=== PATIENT | male | born 1945 | race Caucasian/White ===

== ENCOUNTER 2017-12-24 16:40 | Inpatient (IN) ==
--- OUTSIDE RECORDS SUMMARY | 2017-12-24 16:51 | External Medical Summary | CCD ---
:1945 Author Name EVELIA HALE Address [address], [place] [address] Care Team Providers Name Role Phone MO KOHLER Attending Physician Unavailable Vital Signs Unknown or Not Available. Allergies Allergy Code Allergy Type Reaction Status No Known Allergies 0 No known allergies Active Procedures Unknown or Not Available. History of Immunizations Unknown or Not Available. Problems Unknown or Not Available. Results PT/INR - Collect Date/Time: 05/08/2016 08:10 Test Name Code Test Result Test Units Test Ref Range PT 18.3 Secs L=9.4 H=11.0 INR 1.81 L=0.00 H=4.00 PT/INR - Collect Date/Time: 05/01/2016 08:10 Test Name Code Test Result Test Units Test Ref Range PT 11.0 Secs L=9.4 H=11.0 INR 1.08 L=0.00 H=4.00 Active Medications Unknown or Not Available. Medications Administered During Visit Unknown or Not Available. Encounters Encounter Diagnosis Diagnosis Code Start Date Unspecified atrial fibrillation I4891 05/01/2016 Social History Smoking Status Code Start Date End Date Never smoker [id number] Patient Decision Aids Unknown or Not Available. Discharge Instructions You were admitted to [facility] on 05/01/2016 07:57 with a principal diagnosis of Unspecified atrial fibrillation You had the following tests done: PT/ INR PT/INR You were discharged from [facility] on 05/19/2016 23:59 Should you have any questions prior to discharge, please contact a member of your healthcare team. If you have left the hospital and have any questions, please contact your primary care physician. Chief Complaint and Reason For Visit Chief Complaint Date of Onset LAB Function Status Unknown or Not Available. Plan of Care Unknown or Not Available. Referral/Transition of Care Unknown or Not Available.
--- OUTSIDE RECORDS SUMMARY | 2017-12-24 16:51 | External Medical Summary | CCD ---
:1945 Author Name EVELIA HALE Address [address] [place], [place] [id number] Care Team Providers Name Role Phone JR MAL JASMINE Attending Physician Unavailable Vital Signs Unknown or Not Available. Allergies Allergy Code Allergy Type Reaction Status No Known Allergies 0 No known allergies Active Procedures Unknown or Not Available. History of Immunizations Unknown or Not Available. Problems Unknown or Not Available. Results PSA - Collect Date/Time: 01/18/2016 13:38 Test Name Code Test Result Test Units Test Ref Range PSA 0.36 ng/mL L=0.00 H=4.00 Active Medications Unknown or Not Available. Medications Administered During Visit Unknown or Not Available. Encounters Encounter Diagnosis Diagnosis Code Start Date Enlarged prostate without N400 01/18/2016 lower urinary tract symptoms Social History Smoking Status Code Start Date End Date Never smoker [id number] Patient Decision Aids Unknown or Not Available. Discharge Instructions You were admitted to [facility] on 01/18/2016 13:33 with a principal diagnosis of Enlarged prostate without lower urinary tract symptoms You had the following tests done: PSA You were discharged from [facility] on 01/18/2016 13:33 Should you have any questions prior to [...]
--- OUTSIDE RECORDS SUMMARY | 2017-12-24 16:51 | External Medical Summary ---
:1945 Author Organization [employer] Care Team Providers Name Role Phone Camryn Boschemiliano Provider Role Unavailable Allergies No Known Allergies Problems Problem Type Condition Code Onset Dates Condition Status Problem Hyperlipidemia 272.4 Active Problem Atrial fibrillation 427.31 Active Problem Hypertension 401.9 Active Problem Obstructive sleep apnea (adult) 327.23 Active (pediatric) Problem CHF, Diastolic Heart Failure, 428.32 Active Chronic Problem Hypertension, Unspecified 401.9 Active Medications Medication Code System Code Instructions Start Date End Date Status Dosage Furosemide [facility] [address] 40 MG Orally Once TAKE ONE 9-25 a day TABLET BY MOUTH DAILY Results No Known Results Summary Purpose eClinicalWorks Submission
--- OUTSIDE RECORDS SUMMARY | 2017-12-24 16:51 | External Medical Summary | CCD ---
:1945 Author Name EVELIA HALE Address [address], [place] [id number] Care Team Providers Name Role Phone MO KOHLER Attending Physician Unavailable Vital Signs Unknown or Not Available. Allergies Allergy Code Allergy Type Reaction Status No Known Allergies 0 No known allergies Active Procedures Unknown or Not Available. History of Immunizations Unknown or Not Available. Problems Unknown or Not Available. Results COMP METABOLIC - Collect Date/Time: 10/06/2016 08:00 Test Name Code Test Result Test Units Test Ref Range GLUCOSE 153 mg/dL L=70 H=110 BUN 18 mg/dL L=7 H=18 CREATININE 0.79 mg/dL L=0.60 H=1.30 AGE 71 YEARS GFR 96.7 L=60.0 H=120 SODIUM 141 mmol/L L=136 H=145 POTASSIUM 4.1 mmol/L L=3.5 H=5.1 CHLORIDE 103 mmol/L L=98 H=107 CO2 27 mmol/L L=21 H=32 CALCIUM 9.3 mg/dL L=8.5 H=10.1 AST 13 U/L L=15 H=37 ALT 25 U/L L=12 H=78 ALKALINE PHOS 63 U/L L=46 H=116 TOTAL PROTEIN 7.8 g/dL L=6.4 H=8.2 ALBUMIN 3.9 g/dL L=3.4 H=5.0 TOTAL BILI 0.80 mg/dL L=0.00 H=1.00 HGB A1C - Collect Date/Time: 10/06/2016 08:00 Test Name Code Test Result Test Units Test Ref Range HGB A1C 6.0 % L=4.5 H=6.2 eAG 126 mg/dL LIPID PANEL - Collect Date/Time: 10/06/2016 08:00 Test Name Code Test Result Test Units Test Ref Range CHOLESTEROL 119 mg/dL L=0 H=200 TRIGLYCERIDES 146 mg/dL L=30 H=150 HDL 35 mg/dL L=40 H=60 LDL, CALC 55 mg/dL L=0 H=100 VLDL 29 mg/dL L=0 H=40 CHOL/HDL RISK 3.4 RATIO L=0.0 H=5.0 PT FASTING: YES N/A MICROALBUMIN/CREATININE RATIO - Collect Date/Time: 10/06/2016 08:05 Test Name Code Test Result Test Units Test Ref Range MICROALBUMIN 4.4 mg/dL L=0.1 H=2.0 CREAT, URINE 155.1 mg/dL MICROALB/CREAT 28.4 ug/mg L=0.0 H=29.9 Active Medications Unknown or Not Available. Medications Administered During Visit Unknown or Not Available. Encounters Unknown or Not Available. Social History Smoking Status Code Start Date End Date Never smoker [id number] Patient Decision Aids Unknown or Not Available. Discharge Instructions You were admitted to [facility] on 10/06/2016 07:56 You had the following tests done: COMP METABOLIC HGB A1C LIPID PANEL MICROALBUMIN/CREATININE RATIO You were discharged from [facility] on 10/06/2016 07:56 Should you have any questions prior to [...]
--- OUTSIDE RECORDS SUMMARY | 2017-12-24 16:51 | External Medical Summary ---
:1945 Author Organization [employer] Care Team Providers Name Role Phone Camryn Boschemiliano Provider Role Unavailable Allergies No Known Allergies Problems Problem Type Condition Code Onset Dates Condition Status Problem Hyperlipidemia 272.4 Active Problem Atrial fibrillation 427.31 Active Problem Hypertension 401.9 Active Problem Obstructive sleep apnea (adult) 327.23 Active (pediatric) Assessment Chronic atrial fibrillation I48.2 Active Problem CHF, Diastolic Heart Failure, 428.32 Active Chronic Problem Hypertension, Unspecified 401.9 Active Medications Medication Code System Code Instructions Start End Date Status Dosage Date Verapamil HCl [facility] [address]-091 180 MG Orally 1 tablet CR 4-01 Once a day Results No Known Results Summary Purpose M[employer]piration Submission
--- OUTSIDE RECORDS SUMMARY | 2017-12-24 16:51 | External Medical Summary | CCD ---
:1945 Author Name EVELIA HALE Address [address], [place] [address] Care Team Providers Name Role Phone MO KOHLER Attending Physician Unavailable Vital Signs Unknown or Not Available. Allergies Allergy Code Allergy Type Reaction Status No Known Allergies 0 No known allergies Active Procedures Unknown or Not Available. History of Immunizations Unknown or Not Available. Problems Unknown or Not Available. Results BASIC METABOLIC - Collect Date/Time: 03/01/2016 07:45 Test Name Code Test Result Test Units Test Ref Range GLUCOSE 238 mg/dL L=70 H=110 BUN 18 mg/dL L=7 H=18 CREATININE 0.96 mg/dL L=0.60 H=1.30 AGE 70 YEARS GFR 77.4 SODIUM 139 mmol/L L=136 H=145 POTASSIUM 3.6 mmol/L L=3.5 H=5.1 CHLORIDE 101 mmol/L L=98 H=107 CO2 30 mmol/L L=21 H=32 CALCIUM 9.3 mg/dL L=8.5 H=10.1 Active Medications Unknown or Not Available. Medications Administered During Visit Unknown or Not Available. Encounters Encounter Diagnosis Diagnosis Code Start Date Disorder of kidney and ureter, N289 03/01/2016 unspecified Social History Smoking Status Code Start Date End Date Never smoker [id number] Patient Decision Aids Unknown or Not Available. Discharge Instructions You were admitted to [facility] on 03/01/2016 07:37 with a principal diagnosis of Disorder of kidney and ureter, unspecified You had the following tests done: BASIC METABOLIC You were discharged from [facility] on 03/01/2016 07:37 Should you have any questions prior to [...]
--- OUTSIDE RECORDS SUMMARY | 2017-12-24 16:51 | External Medical Summary ---
:1945 Author Organization e[employer]Works Care Team Providers Name Role Phone Camryn Boschemiliano Provider Role Unavailable Allergies No Known Allergies Problems Problem Type Condition Code Onset Dates Condition Status Problem Hyperlipidemia 272.4 Active Problem Atrial fibrillation 427.31 Active Problem Hypertension 401.9 Active Problem Obstructive sleep apnea (adult) 327.23 Active (pediatric) Assessment Essential (primary) hypertension I10 Active Problem CHF, Diastolic Heart Failure, 428.32 Active Chronic Problem Hypertension, Unspecified 401.9 Active Medications Medication Code System Code Instructions Start Date End Date Status Dosage Furosemide [facility] [address] 40 MG Orally Once 1 tablet -25 a day Results No Known Results Summary Purpose eClinicalWorks Submission
--- OUTSIDE RECORDS SUMMARY | 2017-12-24 16:51 | External Medical Summary ---
:1945 Author Organization [employer]Man[employer] Care Team Providers Name Role Phone Rio Bosch Provider Role Unavailable Allergies No Known Allergies Problems Problem Type Condition Code Onset Dates Condition Status Problem Hyperlipidemia 272.4 Active Problem Atrial fibrillation 427.31 Active Problem Hypertension 401.9 Active Problem Obstructive sleep apnea (adult) 327.23 Active (pediatric) Problem CHF, Diastolic Heart Failure, 428.32 Active Chronic Problem Hypertension, Unspecified 401.9 Active Medications No Known Medications Results No Known Results Summary Purpose En[employer]NetManage Submission
--- OUTSIDE RECORDS SUMMARY | 2017-12-24 16:51 | External Medical Summary | CCD ---
:1945 Author Name IVETT ANTHONY Address [address], [place] [id number] Care Team Providers Name Role Phone JR MAL JASMINE Attending Physician Unavailable MARI POLLOCK Rounding (Secondary) Physician Unavailable Vital Signs Unknown or Not Available. Allergies Allergy Code Allergy Type Reaction Status No Known Allergies 0 No known allergies Active Procedures Unknown or Not Available. History of Immunizations Unknown or Not Available. Problems Unknown or Not Available. Results PSA - Collect Date/Time: 01/14/2015 11:35 Test Name Code Test Result Test Units Test Ref Range PSA 0.33 ng/mL L=0.00 H=4.00 Active Medications Unknown or Not Available. Medications Administered During Visit Unknown or Not Available. 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 Discharge Instructions You were admitted to [facility] on with a principal diagnosis of HYPERTROPHY BENIGN OF PROSTATE. You were discharged from [facility] on 01/14/2015. Should you have any questions prior to discharge, please contact a member of your healthcare team. If you have left the hospital and have any questions, please contact your primary care physician. Chief Complaint and Reason For Visit Unknown or Not Available. Function Status Unknown or Not Available. Plan of Care Unknown or Not Available. Referral/Transition of Care Unknown or Not Available.
--- OUTSIDE RECORDS SUMMARY | 2017-12-24 16:51 | External Medical Summary ---
:1945 Author Organization eClinicalWorks Care Team Providers Name Role Phone Camryn Boschemiliano Provider Role Unavailable Allergies, Adverse Reactions, Alerts Substance Reaction Event Type N.K.D.A. Info Not Available Non Drug Allergy Problems Problem Type Condition Code Onset Dates Condition Status Assessment Hyperlipidemia 272.4 Active Assessment CHF, Diastolic Heart Failure, 428.32 Active Chronic Assessment Hypertension 401.9 Active Problem Hyperlipidemia 272.4 Active Problem Atrial fibrillation 427.31 Active Problem Hypertension 401.9 Active Problem Obstructive sleep apnea (adult) 327.23 Active (pediatric) Assessment Atrial fibrillation 427.31 Active Problem CHF, Diastolic Heart Failure, 428.32 Active Chronic Problem Hypertension, Unspecified 401.9 Active Medications Medication Code Code Instructions Start End Date Status Dosage System Date ASA 325 mg NDC 0 325MG orally 1 tablet Once a day Glimepiride [facility] [address]-00 2 MG Orally 1 tablet 55-01 Twice a day with breakfast or the first main meal of the day Lisinopril-Hydr NDC 27663-08 20-12.5 MG 1 tablet ochlorothiazide 63-01 Orally Twice a day Furosemide NDC 56154-40 40 MG Orally 1 tablet 99-25 Once a day Digoxin NDC 06966-90 0.25 MG Orally 1 tablet 22-01 [place] [address]-14 0.5 MG Orally 1 capsule 12-04 [place] [address]-60 75 MG Orally 1 tablet 03-99 Once a day Simvastatin NDC 18253-92 20 MG Orally 1 tablet 54-10 Once a day Verapamil HCl NDC 39716-21 180 MG Orally 1 tablet CR 44-01 Once a day Metformin HCl [facility] 64656-99 1000 MG Orally 1 tablet 14-01 Twice a day Procedures Procedure Coding System Code Date Office Visit, Est Pt., Level 3 CPT-4 85266 Apr 07, 2015 Vital Signs Date/Time: Apr 07, 2015 BMI 46.98 Index Weight 300 lbs Height 67 in Cardiac Monitoring Heart Rate 61 /min Oximetry 92 % Blood Pressure Diastolic 62 mm Hg Blood Pressure Systolic 110 mm Hg Results No Known Results Summary Purpose eClinicalWorks Submission
--- OUTSIDE RECORDS SUMMARY | 2017-12-24 16:51 | External Medical Summary ---
:1945 Author Organization [facility] Address [address] [place] [address] Care Team Providers Name Role Phone Rio Bosch Unavailable Unavailable PROBLEMS Type Condition ICD9-CM Code [id number] Onset Condition SNOMED Code Code Dates Status Problem Hypertension 401.9 Active 69792664 Problem Hyperlipidemia 272.4 Active 32158243 Problem Hypertension, 401.9 Active 40542461 Unspecified Problem Obstructive sleep 327.23 Active 48204757 apnea (adult) (pediatric) Problem Atrial fibrillation 427.31 Active 07258737 Problem CHF, Diastolic 428.32 Active 351167311 Heart Failure, Chronic ALLERGIES Unknown Allergies SOCIAL HISTORY No smoking Hx information available PLAN OF CARE VITAL SIGNS MEDICATIONS Medication Instructions Dosage Frequency Start Date End Date Duration Status Verapamil HCl Orally Once a day 1 tablet 24h 30 days Active ER 180 MG RESULTS No Results PROCEDURES No Known procedures IMMUNIZATIONS No Known Immunizations
--- OUTSIDE RECORDS SUMMARY | 2017-12-24 16:51 | External Medical Summary | CCD ---
:1945 Author Name EVELIA HALE Address [address], [place] [id number] Care Team Providers Name Role Phone MO KOHLER Attending Physician Unavailable Vital Signs Unknown or Not Available. Allergies Allergy Code Allergy Type Reaction Status No Known Allergies 0 No known allergies Active Procedures Unknown or Not Available. History of Immunizations Unknown or Not Available. Problems Unknown or Not Available. Results PT/INR - Collect Date/Time: 06/05/2016 10:20 Test Name Code Test Result Test Units Test Ref Range PT 27.8 Secs L=9.4 H=11.0 INR 2.79 L=0.00 H=4.00 PT/INR - Collect Date/Time: 05/22/2016 08:45 Test Name Code Test Result Test Units Test Ref Range PT 26.0 Secs L=9.4 H=11.0 INR 2.60 L=0.00 H=4.00 Active Medications Unknown or Not Available. Medications Administered During Visit Unknown or Not Available. Encounters Encounter Diagnosis Diagnosis Code Start Date Unspecified atrial fibrillation I4891 05/22/2016 Social History Smoking Status Code Start Date End Date Never smoker [id number] Patient Decision Aids Unknown or Not Available. Discharge Instructions You were admitted to [facility] on 05/22/2016 08:32 with a principal diagnosis of Unspecified atrial fibrillation You had the following tests done: PT/ INR PT/INR You were discharged from [facility] on 06/05/2016 13:02 Should you have any questions prior to discharge, please contact a member of your healthcare team. If you have left the hospital and have any questions, please contact your primary care physician. Chief Complaint and Reason For Visit Chief Complaint Date of Onset LABS Function Status Unknown or Not Available. Plan of Care Unknown or Not Available. Referral/Transition of Care Unknown or Not Available.
--- OUTSIDE RECORDS SUMMARY | 2017-12-24 16:51 | External Medical Summary | Referral Summary ---
:1945 Author Organization [facility] Address [address] [place] [address] [place] [address] Care Team Providers Name Role Phone No PCP, Pt States Primary Care Physician Encounter VC Date(s): 01/21/15 - 01/21/15 [facility] [place] [address] Discharge Diagnosis: BPH with obstruction/lower urinary tract symptoms Discharge Disposition: 01-Home or Self Care Attending Physician: Logan Correia JR, MD Admitting Physician: Logan Correia JR, MD Vital Signs No data available for this section Problem List No data available for this section Allergies, Adverse Reactions, Alerts No data available for this section Medications Avodart 0.5 mg oral capsule See Instructions, TAKE ONE CAPSULE BY MOUTH EVERY DAY, # 90 Each, 2 Refill(s), Pharmacy: [facility], TAKE ONE CAPSULE BY MOUTH EVERY DAY Start Date: 03/18/15 Status: Ordered Results No data available for this section Immunizations No data available for this section Procedures No data available for this section Social History No data available for this section Assessment and Plan Extracted from: Title: paper refill request Author: Obdulio Billings RN Date: 03/18/15 Fax refill request from pharmacy for Avodart 0.5mg. #90 with 2 refills given. Extracted from: Title: Ambulatory Patient Education Author: Logan Correia JR, MD Date: 01/21/15 Follow Up With: Where: When: Pt States No PCP [address] [place] [address] Business (1) Within 3 to 5 days Comments: Follow Up With: Where: When: Logan Correia [address] [place] [address] Drive; [address] [place] [address] Business (1) In 1 year 01/22/2016 Comments: Extracted from: Title: Office Visit Note Author: Logan Correia JR, MD Date: 01/21/15 Assessment/Plan BPH with obstruction/lower urinary tract symptoms Continue Avodart. Recheck in my office in one year or sooner if needed. PSA a week before next visit. 15 minute face to face visit with 2/3 of the visit devoted to counseling.
--- OUTSIDE RECORDS SUMMARY | 2017-12-24 16:51 | External Medical Summary ---
:1945 Author Organization [facility] Address [address] [place] [address] Care Team Providers Name Role Phone Rio Bosch Unavailable Unavailable PROBLEMS Type Condition ICD9-CM QRA97-CM Onset Condition SNOMED Code Code Code Dates Status Assessment Essential I10 10 Nov, Active 37317034 (primary) 2017 hypertension Problem Hypertension 401.9 Active 11074400 Problem Hyperlipidemia 272.4 Active 38193689 Problem Hypertension, 401.9 Active 81817843 Unspecified Problem Obstructive sleep 327.23 Active 11102848 apnea (adult) (pediatric) Problem Atrial 427.31 Active 85590225 fibrillation Problem CHF, Diastolic 428.32 Active 228344588 Heart Failure, Chronic ALLERGIES Unknown Allergies SOCIAL HISTORY No smoking Hx information available PLAN OF CARE VITAL SIGNS MEDICATIONS Medication Instructions Dosage Frequency Start Date End Date Duration Status Furosemide 40 Orally Once a day 1 tablet 24h 30 days Active MG RESULTS No Results PROCEDURES No Known procedures IMMUNIZATIONS No Known Immunizations
--- OUTSIDE RECORDS SUMMARY | 2017-12-24 16:51 | External Medical Summary | Referral Summary ---
:1945 Author Organization [facility] Address [address] [place] [address] [place] [address] Care Team Providers Name Role Phone No PCP, Pt States Primary Care Physician Encounter VC Date(s): 01/20/16 - 01/20/16 [facility] [address] [place] [address] [place] [address] [place] Discharge Diagnosis: Type II diabetes mellitus with coma Discharge Diagnosis: Obesity, morbid Discharge Diagnosis: AF (atrial fibrillation) Discharge Diagnosis: Essential hypertension Discharge Diagnosis: Hypercholesterolemia Discharge Diagnosis: BPH with obstruction/lower urinary tract symptoms Discharge Diagnosis: CAD (coronary artery disease) Discharge Disposition: 01-Home or Self Care Attending Physician: Logan Correia JR, MD Vital Signs No data available for this section Problem List No Known Problems Allergies, Adverse Reactions, Alerts No Known Medication Allergies Medications Avodart 0.5 mg oral capsule See Instructions, TAKE ONE CAPSULE BY MOUTH EVERY DAY, # 90 Each, 0 Refill(s), Pharmacy: [facility], TAKE ONE CAPSULE BY MOUTH EVERY DAY Start Date: 09/27/15 Status: Ordered Results No data available for this section Immunizations No data available for this section Procedures Procedure Date Related Diagnosis Body Site Appendectomy Circumcision Hernia repair Tonsillectomy Social History Social History Type Response Smoking Status Unknown if ever smoked Assessment and Plan Extracted from: Title: Ambulatory Patient Education Author: Logan Correia JR, MD Date: 01/20/16 Follow Up With: Where: When: Pt States No PCP [address] [place] [address] Business (1) Within 3 to 5 days Comments: Follow Up With: Where: When: Logan Correia [address] [place] [address] Drive; [address] [place] [address] Business (1) In 1 year 01/19/2017 Comments: Extracted from: Title: Office Visit Note Author: Logan Correia JR, MD Date: 01/20/16 Assessment/Plan 1.BPH with obstruction/lower urinary tract symptoms Continue Avodart recheck in my office in one year. PSAa week before next visit. Ordered: Office Visit Level 3 Est 58813 2.Type II diabetes mellitus with coma Continue metforminthousand milligrams twice a Ordered: Office Visit Level 3 Est 96450 3.Obesity, morbid Patient is trying to lose weight but could not proceed anyway. He likes food Ordered: Office Visit Level 3 Est 91755 4.AF (atrial fibrillation) Continue verapamilaspirin and Plavix Ordered: Office Visit Level 3 Est 90352 5.CAD (coronary artery disease) Continuedigoxinand furosemide Ordered: Office Visit Level 3 Est 82617 6.Essential hypertension Continue lisinopril with hydrochlorothiazide 20/ 12.5 mg twice a day. 7.Hypercholesterolemia Continue simvastatin 20 mg at bedtime.
--- OUTSIDE RECORDS SUMMARY | 2017-12-24 16:51 | External Medical Summary | CCD ---
:1945 Author Name IVETT ANTHONY Address [address], [place] [address] Care Team Providers Name Role Phone MARI POLLOCK Attending Physician Unavailable Vital Signs Unknown or Not Available. Allergies Allergy Code Allergy Type Reaction Status No Known Allergies 0 No known allergies Active Procedures Unknown or Not Available. History of Immunizations Unknown or Not Available. Problems Unknown or Not Available. Results HGB A1C - Collect Date/Time: 12/08/2014 14:45 Test Name Code Test Result Test Units Test Ref Range HGB A1C 6.7 % L=4.5 H=6.2 eAG 146 mg/dL Active Medications Unknown or Not Available. Medications Administered During Visit Unknown or Not Available. Encounters Unknown or Not Available. Social History Smoking Status Code Start Date End Date Never smoker [id number] Patient Decision Aids Unknown or Not Available. Discharge Instructions You were admitted to [facility] on 12/08/2014. You were discharged from [facility] on 12/08/2014. Should you have any questions prior to [...]
--- OUTSIDE RECORDS SUMMARY | 2017-12-24 16:52 | External Medical Summary ---
:1945 Author Organization [facility] Address [address] [place] [address] Care Team Providers Name Role Phone Rio Bosch Unavailable Unavailable PROBLEMS Type Condition ICD9-CM Code [id number] Onset Condition SNOMED Code Code Dates Status Problem Hypertension 401.9 Active 47297407 Problem Hyperlipidemia 272.4 Active 86885316 Problem Hypertension, 401.9 Active 65813245 Unspecified Problem Obstructive sleep 327.23 Active 29174370 apnea (adult) (pediatric) Problem Atrial fibrillation 427.31 Active 91847906 Problem CHF, Diastolic 428.32 Active 875694554 Heart Failure, Chronic ALLERGIES Unknown Allergies SOCIAL HISTORY No smoking Hx information available PLAN OF CARE VITAL SIGNS MEDICATIONS Unknown Medications RESULTS No Results PROCEDURES No Known procedures IMMUNIZATIONS No Known Immunizations
--- OUTSIDE RECORDS SUMMARY | 2017-12-24 16:52 | External Medical Summary | CCD ---
:1945 Author Name EVELIA HALE Address [address] [place], [place] [address] Care Team Providers Name Role Phone CONNOR DIAZ Attending Physician Unavailable CONNOR DIAZ Er Physician 1 Unavailable Vital Signs Unknown or Not Available. Allergies Allergy Code Allergy Type Reaction Status No Known Allergies 0 No known allergies Active Procedures Unknown or Not Available. History of Immunizations Unknown or Not Available. Problems Unknown or Not Available. Results AEROBIC BACTERIAL CULTURE - Collect Date/Time: 01/17/2016 09:08 Test Name Code Test Result Test Units Test Ref Range SPEC SOURCE R LOWER LEG N/A Aerobic Bacterial 634-6 Final report N/A Culture Active Medications Unknown or Not Available. Medications Administered During Visit Unknown or Not Available. Encounters Unknown or Not Available. Social History Smoking Status Code Start Date End Date Never smoker [id number] Patient Decision Aids Unknown or Not Available. Discharge Instructions You were admitted to [facility] on 01/17/2016 08:49 You had the following tests done: AEROBIC BACTERIAL CULTURE You were discharged from [facility] on 01/17/2016 09:55 Should you have any questions prior to discharge, please contact a member of your healthcare team. If you have left the hospital and have any questions, please contact your primary care physician. Chief Complaint and Reason For Visit Chief Complaint Date of Onset WOUND ON RIGHT HOLT Function Status Unknown or Not Available. Plan of Care Unknown or Not Available. Referral/Transition of Care Unknown or Not Available.
--- OUTSIDE RECORDS SUMMARY | 2017-12-24 16:52 | External Medical Summary | CCD ---
:1945 Author Name EVELIA HALE Address [address], [place] [address] Care Team Providers Name Role Phone MO KOHLER Attending Physician Unavailable Vital Signs Unknown or Not Available. Allergies Allergy Code Allergy Type Reaction Status No Known Allergies 0 No known allergies Active Procedures Unknown or Not Available. History of Immunizations Unknown or Not Available. Problems Unknown or Not Available. Results COMP METABOLIC - Collect Date/Time: 08/27/2015 08:15 Test Name Code Test Result Test Units Test Ref Range GLUCOSE 194 mg/dL L=70 H=110 BUN 16 mg/dL L=7 H=18 CREATININE 0.90 mg/dL L=0.60 H=1.30 AGE 70 YEARS GFR 88.7 SODIUM 137 mmol/L L=136 H=145 POTASSIUM 3.9 mmol/L L=3.5 H=5.1 CHLORIDE 100 mmol/L L=98 H=107 CO2 27 mmol/L L=21 H=32 CALCIUM 9.5 mg/dL L=8.5 H=10.1 AST 22 U/L L=15 H=37 ALT 35 U/L L=12 H=78 ALKALINE PHOS 56 U/L L=46 H=116 TOTAL PROTEIN 7.6 g/dL L=6.4 H=8.2 ALBUMIN 4.0 g/dL L=3.4 H=5.0 TOTAL BILI 0.80 mg/dL L=0.00 H=1.00 LIPID PANEL - Collect Date/Time: 08/27/2015 08:15 Test Name Code Test Result Test Units Test Ref Range CHOLESTEROL 128 mg/dL L=0 H=200 TRIGLYCERIDES 222 mg/dL L=30 H=150 HDL 34 mg/dL L=40 H=60 LDL, CALC 50 mg/dL L=0 H=100 VLDL 44 mg/dL L=0 H=40 CHOL/HDL RISK 3.8 RATIO L=0.0 H=5.0 PT FASTING: YES N/A MICROALBUMIN/CREATININE RATIO - Collect Date/Time: 08/27/2015 08:20 Test Name Code Test Result Test Units Test Ref Range MICROALBUMIN 24.0 mg/dL L=0.1 H=2.0 CREAT, URINE 169.3 mg/dL MICROALB/CREAT 141.8 ug/mg L=0.0 H=29.9 CBC W/ DIFF - Collect Date/Time: 08/27/2015 08:15 Test Name Code Test Result Test Units Test Ref Range WBC 11.3 x10^3 L=4.8 H=10.8 RBC 5.71 x10^6 L=4.70 H=6.10 HEMOGLOBIN 16.2 g/dL L=14.0 H=18.0 HEMATOCRIT 47.9 % L=42.0 H=52.0 MCV 84 fL L=80 H=100 MCH 28.4 pg L=27.0 H=33.0 MCHC 33.8 g/dL L=33.0 H=37.0 RDW 14.8 % L=11.5 H=14.5 PLATELETS 256 x10^3 L=150 H=450 MPV 6.1 fL L=7.8 H=11.0 NEUTROPHILS 72.8 % L=40.0 H=80.0 LYMPHOCYTES 17.5 % L=20.0 H=45.0 MONOCYTES 5.7 % L=0.0 H=10.0 EOSINOPHILS 2.9 % L=0.0 H=5.0 BASOPHILS 1.1 % L=0.0 H=2.0 REFLEX MAN DIFF NO N/A Active Medications Unknown or Not Available. Medications Administered During Visit Unknown or Not Available. Encounters Encounter Diagnosis Diagnosis Code Start Date Essential (primary) hypertension I10 08/27/2015 Social History Smoking Status Code Start Date End Date Never smoker [id number] Patient Decision Aids Unknown or Not Available. Discharge Instructions You were admitted to [facility] on 03/2016 with a principal diagnosis of Essential (primary) hypertension. You were discharged from [facility] on 08/27/2015. Should you have any questions prior to [...]
--- OUTSIDE RECORDS SUMMARY | 2017-12-24 16:52 | External Medical Summary ---
:1945 Author Organization [facility] Care Team Providers Name Role Phone Rio [...] Medications Results No Known Results Summary Purpose [employer] Submission
--- OUTSIDE RECORDS SUMMARY | 2017-12-24 16:52 | External Medical Summary | Continuity of Care Document ---
:1945 Author Organization [facility] Allergies Active Description Code Type Severity Reaction Onset Reported/ Identified Relationship Clinical to Patient Status Yes No Known 39153 Misce Moderate N/A Allergies 999 llane ous Aller gy Yes No Known NKMA N/A N/A 09/27/2015 Medication Allergies Yes No Known NKMA N/A N/A 09/27/2015 Medication Allergies Yes No Known Drug Unknown N/A 11/09/2015 Drug Allergy Aller gy Yes No Known Drug Unknown N/A 02/01/2017 Drug Allergy Aller gy Medications Medication Packaging Start Date Stop Date Route Dosage Sig 03/18/2015 See dutasteride(Avod 6 Instructions, art 0.5 mg oral TAKE ONE capsule) CAPSULE BY MOUTH EVERY DAY, 90 Each, 2 Refill(s) 09/27/2015 See dutasteride(Avod Instructions, art 0.5 mg oral TAKE ONE capsule) CAPSULE BY MOUTH EVERY DAY, 90 Each, 0 Refill(s) 11/09/2015 250 mcg 1 Digox 250 mcg 6 (one) by Oral tablet route daily 11/09/2015 180 mg verapamil ER 180 take 1 (one) by mg 24 hr Oral route capsule,extended daily release Tablet 11/09/2015 20-12.5 mg Zestoretic 20 take 1 (one) mg-12.5 mg Tablet by Oral tablet route two times per day 11/09/2015 75 mg clopidogrel 75 6 take 1 (one) mg tablet Tablet by Oral route daily Tablet 11/09/2015 2 mg glimepiride 2 mg take 1 (one) tablet Tablet by Oral route two times per day Tablet 11/09/2015 1,000 mg metFORMIN 1,000 take 1 (one) mg tablet Tablet by Oral route two times per day Blister 11/09/2015 20 mg simvastatin 20 6 take 1 (one) mg tablet Tablet by Oral route daily 11/09/2015 0.5 mg dutasteride 0.5 7 take 1 (one) mg capsule Capsule by Oral route daily 11/09/2015 40 mg furosemide 40 mg 6 take 1 (one) tablet Tablet by Oral route daily 02/03/2016 0.005 % 1 latanoprost (one) at 0.005 % eye bedtime drops Blister 01/30/2017 5-120 mg Allergy Relief take 1 (one) by D12 5 mg-120 mg Oral route tablet,extended daily as release needed Bottle 01/30/2017 0.005 % 1 latanoprost (one) daily 0.005 % eye drops Tablet 01/30/2017 250 mcg 1 digoxin 250 mcg (one) by Oral tablet route daily Box 01/30/2017 325 mg aspirin 325 mg take 1 (one) tablet Tablet by Oral route daily Blister 01/30/2017 75 mg clopidogrel 75 take 1 (one) mg tablet Tablet by Oral route daily Blister 01/30/2017 2 mg glimepiride 2 mg take 1 (one) tablet Tablet by Oral route daily Tablet 01/30/2017 1,000 mg metFORMIN 1,000 take 1 (one) mg tablet Tablet by Oral route daily Blister 01/30/2017 10 mg simvastatin 10 take 1 (one) mg tablet Tablet by Oral route daily Tablet 01/30/2017 180 mg verapamil ER take 1 (one) by (SR) 180 mg Oral route tablet,extended daily release Blister 01/30/2017 20-12.5 mg lisinopril 20 take 1 (one) mg-hydrochloroth Tablet by Oral iazide 12.5 mg route daily tablet Tablet 01/30/2017 40 mg furosemide 40 mg take 1 (one) tablet Tablet by Oral route daily Capsule 01/30/2017 0.5 mg dutasteride 0.5 take 1 (one) mg capsule Capsule by Oral route daily Bottle 02/06/2017 55 mcg 1 Nasacort 55 mcg (one) by nasal spray Intranasal aerosol route two times per day Box 02/06/2017 325 mg aspirin 325 mg take 1 (one) tablet Tablet by Oral route daily Blister 02/06/2017 5 mg finasteride 5 mg take 1 (one) tablet Tablet by Oral route daily Problems Date Dx Attending Type Code Diagnosis Diagnosed By Coded 12/29/2015 EMELI ESPINAL, E66.8 Other obesity EMELI ESPINAL, KELSI DOLAN I 12/29/2015 EMELI ESPINAL, G47.33 Obstructive sleep apnea EMELI ESPINAL, KELSI Melton (adult) (pediatric) KELSI I 12/29/2015 EMELI ESPINAL, I10 Essential (primary) EMELI ESPINAL, KELSI I hypertension KELSI I 12/29/2015 EMELI ESPINAL, I48.1 Persistent atrial EMELI ESPINAL, KELSI I fibrillation KELSI I 12/29/2015 EMELI ESPINAL, I50.32 Chronic diastolic EMELI ESPINAL, KELSI [place] (congestive) heart KELSI I failure 01/20/2016 [place], Final E11.69 Type 2 diabetes mellitus Logan T with other specified complication 01/20/2016 [place], Final N40.1 Enlarged prostate with Logan T lower urinary tract symptoms 01/20/2016 [place], Final E66.01 Morbid (severe) obesity Logan T due to excess calories 01/20/2016 [place], Final E78.0 Pure hypercholesterolemia Logan T 01/20/2016 [place], Final I10 Essential (primary) Logan T hypertension 01/20/2016 [place], Final 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 01/20/2016 [place], Final I48.91 Unspecified atrial Logan T fibrillation 02/04/2016 EMELI ESPINAL, E66.8 Other obesity EMELI ESPINAL, KELSI I KELSI I 02/04/2016 EMELI ESPINAL, G47.33 Obstructive sleep apnea EMELI ESPINAL, KELSI Mel[place] (adult) (pediatric) KELSI I 02/04/2016 EMELI ESPINAL, I10 Essential (primary) EMELI ESPINAL, KELSI [place] hypertension KELSI I 02/04/2016 EMELI ESPINAL, I48.1 Persistent atrial EMELI ESPINAL, KESLI I fibrillation KELSI I 02/04/2016 EMELI ESPINAL, I50.9 Heart failure, EMELI ESPINAL, KELSI I unspecified KELSI I 02/02/2017 DANIELLE ESPINAL, N40.1 Benign prostatic BEBO SANTOS MD hyperplasia with lower BEBO urinary tract symptoms 02/02/2017 DANIELLE ESPINAL, N52.9 Male erectile BEBO SANTOS MD dysfunction, unspecified BEBO 02/02/2017 DANIELLE ESPINAL, R35.0 Frequency of micturition BEBO SANTOS MD 02/07/2017 EMELI ESPINAL, E66.8 Other obesity KELSI SAINZ MD, I 02/07/2017 EMELI ESPINAL, G47.33 Obstructive sleep apnea KELSI SAINZ MD, I (adult) (pediatric) KELSI Mel[place] 10/12/2017 P E119 Type 2 diabetes mellitus without complications 10/12/2017 S E785 Hyperlipidemia, unspecified 10/12/2017 S I10 Essential (primary) hypertension 10/12/2017 S I4891 Unspecified atrial fibrillation 10/12/2017 S I509 Heart failure, unspecified 11/21/2017 REY, ABID S I482 Chronic atrial fibrillation 11/21/2017 REY, ABID S I5032 Chronic diastolic (congestive) heart failure 11/21/2017 REY, ABID P R5382 Chronic fatigue, unspecified Procedures Code Description [place] [address] Office or KELSI SAINZ MD, I 01/12/2016 other outpatient visit for the evaluation and management of a new patient, which requires [address] Office or 01/20/2016 other outpatient visit for the evaluation and management of an established patient, which requires at least 2 of these 3 vázquez components: An expanded problem focused history; An expanded prob 27912 Office or KELSI SAINZ MD, I 01/21/2016 other outpatient visit for the evaluation and management of [place] [address] Sleep KELSI SAINZ MD, I 02/04/2016 Consult billed as Est Lev 3 [phone] KELSI Carbone MD, I 03/02/2016 Consult billed as Est Lev 3 [phone] OFFICE OR BEBO SANTOS MD 02/02/2017 OTHER OUTPATIENT VISIT FOR THE EVALUATION AND MANAGEMENT OF ANEW PATIENT, WHICH [place]QUIRES T 05222 KELSI Carbone MD, I 02/07/2017 Consult billed as Est Lev [phone] Sleep KELSI SAINZ MD, I 03/05/2017 Consult billed as Est Lev 3 [phone] OFFICE OR BEBO SANTOS MD 03/07/2017 OTHER OUTPATIENT VISIT FOR THE EVALUATION AND MANAGEMENT OF ANEW PATIENT, WHICH REQUIRES T Results Test Result Range PSA, TOTAL - 02/08/17 02:07 PSA, TOTAL 0.55 ng/ml 0-4 TSH - 11/21/17 15:10 TSH 3.23 uIU/mL 0.36 - 3.74 COMP METABOLIC - 12/21/17 18:11 COMP METABOLIC LAB NRG GLUCOSE 178 mg/dL 70 - 110 BUN 19 mg/dL 7 - 18 CREATININE 0.99 mg/dL 0.60 - 1.30 AGE 72 YEARS NRG GFR 74.3 60.0 - 120 SODIUM 142 mmol/L 136 - 145 POTASSIUM 3.6 mmol/L 3.5 - 5.1 CHLORIDE 103 mmol/L 98 - 107 CO2 28 mmol/L 21 - 32 CALCIUM 9.3 mg/dL 8.5 - 10.1 AST 23 U/L 15 - 37 ALT 36 U/L 14 - 63 ALKALINE PHOS 65 U/L 46 - 116 TOTAL PROTEIN 7.3 g/dL 6.4 - 8.2 ALBUMIN 3.8 g/dL 3.4 - 5.0 TOTAL BILI 0.90 mg/dL 0.00 - 1.00 TROPONIN I (QUANT) - 12/21/17 18:11 TROPONIN I <0.02 ng/mL 0.00 - 0.05 PTT - 12/21/17 18:11 PTT 23.2 Secs 22.0 - 30.0 INR PPP - 12/21/17 18:11 PT 9.7 Secs 9.0 - 10.4 INR 1.00 0.00 - 4.00 CBC W/ DIFF - 12/21/17 18:11 CBC W/ DIFF LAB NRG WBC 15.4 x10^3 4.8 - 10.8 RBC 4.54 x10^6 4.70 - 6.10 HEMOGLOBIN 12.9 g/dL 14.0 - 18.0 HEMATOCRIT 38.8 % 42.0 - 52.0 MCV 86 fL 80 - 100 MCH 28.4 pg 27.0 - 33.0 MCHC 33.2 g/dL 33.0 - 37.0 RDW 15.0 % 11.5 - 14.5 PLATELETS 209 x10^3 150 - 450 MPV 9.1 fL 7.8 - 11.0 NEUTROPHILS 77.0 % 40.0 - 80.0 LYMPHOCYTES 9.5 % 20.0 - 45.0 MONOCYTES 3.5 % 0.0 - 10.0 EOSINOPHILS 7.8 % 0.0 - 5.0 BASOPHILS 0.9 % 0.0 - 2.0 IMMATURE GRAN 1.3 % 0.0 - 2.0 NUCLEATED RBC'S 0.0 % 0.0 - 1.0 REFLEX MAN DIFF YES NRG SEG 86 %% 40 - 80 BAND 2 %% 0 - 5 LYMPH 7 %% 20 - 45 MONO 1 %% 0 - 10 EOS 2 %% 0 - 5 BASO 2 %% 0 - 2 ATYP LYMPH 0 %% 0 - 10 META 0 %% 0 - 1 RBC MORPHOLOGY NORMAL NRG CBC With Platelet and Differential - 12/22/17 00:29 Absolute Basophils 0.05 10*3/uL 0.00-0.20 Absolute Eosinophils 0.96 10*3/uL 0.00-0.50 Absolute Lymphocytes 1.26 10*3/uL 0.80-3.30 Absolute Monocytes 0.53 10*3/uL 0.30-1.00 Absolute Neutrophils 10.27 10*3/uL 1.90-7.00 Basophils 0 % 0-2 Eosinophils 7 % 0-4 HCT 37.5 % 42.0-52.0 HGB 12.7 g/dL 14.0-18.0 Immature Granulocytes 0.8 % 0.0-1.0 Lymphocytes 10 % 20-46 MCH 29.0 pg 27.0-32.0 MCHC 33.9 g/dL 32.0-36.0 MCV 85.6 fL 82.0-99.0 Monocytes 4 % 4-11 MPV 8.7 fL 9.4-12.3 Neutrophils 78 % 51-75 Nucleated RBC Automated 0.0 /100 WBC Platelet Count 177 K/uL 150-400 RBC 4.38 10*6/uL 4.60-6.20 RDW 15.3 % 11.5-14.5 WBC 13.2 K/uL 4.8-10.8 Protime (INR) - 12/22/17 00:29 INR 1.1 NA 0.9-1.2 PTT - 12/22/17 00:29 PTT 28.6 seconds 25.0-35.0 Comprehensive Metabolic Panel (CMP) - 12/22/17 00:29 Albumin 3.7 g/dL 3.5-4.8 Alkaline Phosphatase 50 U/L 26-104 ALT (SGPT) 25 U/L 17-63 Anion Gap 10 mEq/L 3-20 AST (SGOT) 20 U/L 15-41 Bilirubin Total 1.2 mg/dL 0.2-1.2 BUN 16 mg/dL 4-20 Calcium 9.0 mg/dL 8.6-10.0 Chloride 101 mEq/L 99-109 CO2 27 mEq/L 22-32 Creatinine 0.68 mg/dL 0.64-1.27 Globulin 2.4 g/dL 1.9-4.3 Glucose 162 mg/dL 70-100 Potassium 3.3 mEq/L 3.6-5.1 Protein 6.1 g/dL 6.1-7.9 Sodium 138 mEq/L 136-144 Magnesium - 12/22/17 00:29 Magnesium 1.6 mg/dL 1.8-2.5 Phosphorus - 12/22/17 00:29 Phosphorus 3.8 mg/dL 2.4-4.7 eGFR - 12/22/17 00:29 eGFR >60 mL/min >60 Hemoglobin A1C - 12/22/17 00:29 Hemoglobin A1C 6.5 % 4.1-5.6 Estimated Average Glucose - 12/22/17 00:29 Estimated Average Glucose 139.9 mg/dL Lipid Panel - 12/22/17 00:29 Cardiac Risk 4.3 0.0-5.7 Cholesterol 117 mg/dL 0-199 HDL Cholesterol 27 mg/dL 40-84 LDL Cholesterol 64 mg/dL 0-130 Triglycerides 128 mg/dL 0-149 VLDL Cholesterol 26 mg/dL 0-28 CBC With Platelet and Differential - 12/22/17 07:01 Absolute Basophils 0.06 10*3/uL 0.00-0.20 Absolute Eosinophils 0.74 10*3/uL 0.00-0.50 Absolute Lymphocytes 1.27 10*3/uL 0.80-3.30 Absolute Monocytes 0.50 10*3/uL 0.30-1.00 Absolute Neutrophils 10.00 10*3/uL 1.90-7.00 Basophils 1 % 0-2 Eosinophils 6 % 0-4 HCT 37.7 % 42.0-52.0 HGB 12.5 g/dL 14.0-18.0 Immature Granulocytes 0.6 % 0.0-1.0 Lymphocytes 10 % 20-46 MCH 28.5 pg 27.0-32.0 MCHC 33.2 g/dL 32.0-36.0 MCV 85.9 fL 82.0-99.0 Monocytes 4 % 4-11 MPV 8.9 fL 9.4-12.3 Neutrophils 79 % 51-75 Nucleated RBC Automated 0.0 /100 WBC Platelet Count 184 K/uL 150-400 RBC 4.39 10*6/uL 4.60-6.20 RDW 15.4 % 11.5-14.5 WBC 12.6 K/uL 4.8-10.8 Phosphorus - 12/22/17 07:01 Phosphorus 3.5 mg/dL 2.4-4.7 Magnesium - 12/22/17 07:01 Magnesium 1.7 mg/dL 1.8-2.5 Comprehensive Metabolic Panel (CMP) - 12/22/17 07:01 Albumin 3.6 g/dL 3.5-4.8 Alkaline Phosphatase 50 U/L 26-104 ALT (SGPT) 22 U/L 17-63 Anion Gap 11 mEq/L 3-20 AST (SGOT) 17 U/L 15-41 Bilirubin Total 1.4 mg/dL 0.2-1.2 BUN 13 mg/dL 4-20 Calcium 8.9 mg/dL 8.6-10.0 Chloride 100 mEq/L 99-109 CO2 27 mEq/L 22-32 Creatinine 0.64 mg/dL 0.64-1.27 Globulin 2.3 g/dL 1.9-4.3 Glucose 167 mg/dL 70-100 Potassium 3.4 mEq/L 3.6-5.1 Protein 5.9 g/dL 6.1-7.9 Sodium 138 mEq/L 136-144 eGFR - 12/22/17 07:01 eGFR >60 mL/min >60 Digoxin - 12/22/17 07:01 Digoxin 0.7 ng/mL 0.8-2.0 Encounters ACCT No. Visit Discharge Status Pt. Type Provider Facility Loc./Unit Complaint Date/Time [id number] 01/20/2016 01/20/2016 DIS Outpatient [place], [facility] New 07:58:00 23:59:00 Logan Lamb follow up [facility] [id number] 02/21/2017 02/21/2017 CLS Outpatient DANIELLE 09:17:07 23:59:59 BEBO ESPINAL [id number] 04/17/2017 04/17/2017 CLS Outpatient EKENGREN 13:35:02 23:59:59 KELSI ESPINAL I [id number] 12/21/2017 ACT Inpatient [place], Via [facility] F5SE TIA vs R 42 22:06:00 [facility] stroke, on [facility] [id number] 09/28/2015 Document 1726 05:17:26 Registrati on [id number] 06/09/2015 Document 1419 13:14:19 Registrati on [id number] 12/21/2017 12/21/2017 DIS Emergency ZAHRA, 001 POSSIBLE 18:06:00 20:34:00 HARPREET M STROKE [id number] 11/21/2017 11/21/2017 CLS Outpatient REY [facility] 15:05:00 23:59:59 ABID [id number] 10/12/2017 Document 08:35:00 Registrati on [id number] 10/13/2016 ACT Unknown [id number] 07:43:00 [id number] 07/19/2016 ACT Unknown [id number] 12:41:00 [id number] 06/26/2016 ACT Unknown [id number] 14:16:00 [id number] 06/26/2016 ACT Unknown [id number] 14:06:00 [id number] 03/28/2016 ACT Unknown [id number] 07:46:00 [id number] 02/01/2016 ACT Unknown [id number] 11:00:00 [id number] 01/27/2016 ACT Unknown [id number] 15:41:00 [id number] 09/21/2015 ACT Unknown [id number] 08:06:00 [id number] 09/10/2015 ACT Unknown [id number] 12:49:00 [id number] 09/17/2014 ACT Unknown [id number] 12:47:00 [id number] 09/15/2014 ACT Unknown [id number] 08:24:00 [id number] 07/03/2014 ACT Unknown [id number] 10:00:00 [id number] 03/09/2014 ACT Unknown [id number] 09:11:00 [id number] 12/22/2013 ACT Unknown [id number] 08:16:00
--- OUTSIDE RECORDS SUMMARY | 2017-12-24 16:52 | External Medical Summary ---
:1945 Author Organization [employer] [facility] Address [address] [place] [address] Care Team Providers Name Role Phone Rio Bosch Unavailable Unavailable PROBLEMS Type Condition ICD9-CM [id number] Onset Condition SNOMED Code Code Code Dates Status Assessment Chronic atrial I48.2 Aug, Active [id number] fibrillation 2017 Problem Hypertension 401.9 Active 17585634 Problem Hyperlipidemia 272.4 Active 85076378 Problem Hypertension, 401.9 Active 96260609 Unspecified Problem Obstructive sleep 327.23 Active 86161915 apnea (adult) (pediatric) Problem Atrial 427.31 Active 30974857 fibrillation Problem CHF, Diastolic 428.32 Active 492375258 Heart Failure, Chronic ALLERGIES Unknown Allergies SOCIAL HISTORY No smoking Hx information available PLAN OF CARE VITAL SIGNS MEDICATIONS Medication Instructions Dosage Frequency Start Date End Date Duration Status Digoxin 0.25 MG Orally Once a day 1 tablet 24h 30 days Active RESULTS No Results PROCEDURES No Known procedures IMMUNIZATIONS No Known Immunizations
--- OUTSIDE RECORDS SUMMARY | 2017-12-24 16:52 | External Medical Summary | CCD ---
:1945 Author Name EVELIA HALE Address [address], [place] [id number] Care Team Providers Name Role Phone PRETTY MERCADO Attending Physician Unavailable PRETTY MERCADO Er Physician 1 Unavailable GUILLERMO Perry Registered Nurse Unavailable Vital Signs Vital Sign Value Unit Date/Time Recent/Initial? Weight Measured 276 lbs 06/11/2016 19:21 Initial VS Height 67 in 06/11/2016 19:21 Initial VS BMI (Body Mass 43.23 kg/m^2 06/11/2016 19:21 Initial VS Index) BSA (Body Surface 2.43 m^2 06/11/2016 19:21 Initial VS Area) Allergies Allergy Code Allergy Type Reaction Status No Known Allergies 0 No known allergies Active Procedures Unknown or Not Available. History of Immunizations Unknown or Not Available. Problems Unknown or Not Available. Results CBC W/ DIFF - Collect Date/Time: 06/11/2016 18:54 Test Name Code Test Result Test Units Test Ref Range WBC 15.8 x10^3 L=4.8 H=10.8 RBC 5.22 x10^6 L=4.70 H=6.10 HEMOGLOBIN 14.2 g/dL L=14.0 H=18.0 HEMATOCRIT 42.6 % L=42.0 H=52.0 MCV 82 fL L=80 H=100 MCH 27.3 pg L=27.0 H=33.0 MCHC 33.4 g/dL L=33.0 H=37.0 RDW 14.4 % L=11.5 H=14.5 PLATELETS 302 x10^3 L=150 H=450 MPV 6.4 fL L=7.8 H=11.0 NEUTROPHILS 84.4 % L=40.0 H=80.0 LYMPHOCYTES 10.0 % L=20.0 H=45.0 MONOCYTES 3.0 % L=0.0 H=10.0 EOSINOPHILS 2.4 % L=0.0 H=5.0 BASOPHILS 0.2 % L=0.0 H=2.0 SEG 72 %% L=40 H=80 BAND 1 %% L=0 H=5 LYMPH 12 %% L=20 H=45 MONO 9 %% L=0 H=10 EOS 6 %% L=0 H=5 BASO 0 %% L=0 H=2 ATYP LYMPH 0 %% L=0 H=10 META 0 %% L=0 H=1 REFLEX MAN DIFF YES N/A RBC MORPHOLOGY NORMAL N/A PT/INR - Collect Date/Time: 06/11/2016 18:54 Test Name Code Test Result Test Units Test Ref Range PT 33.4 Secs L=9.4 H=11.0 INR 3.35 L=0.00 H=4.00 Active Medications No Active Medications Medications Administered During Visit Unknown or Not Available. Encounters Encounter Diagnosis Diagnosis Code Start Date Concussion without loss of [id number] 06/11/2016 consciousness, initial encounter Social History Smoking Status Code Start Date End Date Never smoker [id number] Patient Decision Aids Unknown or Not Available. Discharge Instructions You were admitted to [facility] on 06/11/2016 18:21 with a principal diagnosis of Concussion without loss of consciousness, initial encou You had the following tests done: CBC W/ DIFF PT/INR You were discharged from [facility] on 06/11/2016 19:55 Should you have any questions prior to discharge, please contact a member of your healthcare team. If you have left the hospital and have any questions, please contact your primary care physician. Chief Complaint and Reason For Visit Chief Complaint Date of Onset FELL BACKWARDS AND HIT BACK OF HEAD ON GROUND, HEADACHE Function Status Unknown or Not Available. Plan of Care Unknown or Not Available. Referral/Transition of Care Unknown or Not Available.
--- NOTE | 2017-12-24 17:44 | IRU History & Physical Report ---
HPI IRU Date: Date: 12/24/17 Time: 173 Chief complaint: I'm weak on my right side HPI: Mr. Monte is a very pleasant 72-year-old male. Referring physician Roman Gaytan MD. his primary care provider is Payton Turner M.D. history is obtained predominantly from the patient's but also from transfer records and from the patient. The patient is an active rancher. He was mowing his yard on a riding lawnmower. He wanted to get off of the lawnmower. His was nearby. He fell getting off the lawnmower but did not injure himself. He and his then walked to wear some cattle and he were located. He fell the second time at that point. He was noted to be confused and had slurred speech. The initial episode was around 4 or 4:15 PM on 12/21/2017. He presented to the emergency department at [facility] around 7 PM. He was noted to have right-sided facial droop accompanied by confusion and dysarthria with expressive dysphasia and disorientation. Initial NIH score was 11 which later improved to 4. At that location he was given aspirin. He was subsequently transferred to [facility] on the same date. CT head initially was negative for any evidence of acute finding including no evidence of hemorrhage. He had right-sided weakness including right face droop and right arm and leg weakness. On arrival at [facility] his blood pressure was 170/91. He was admitted to the hospital where several studies were undertaken as will be discussed subsequently. Patient apparently has a history of atrial fibrillation, hypertension and diabetes mellitus. According to him and his he was on warfarin in the past but this was stopped several years ago. At home he was not taking Plavix but has been started on that at present. Recommendations were to start Eliquis in about 2 weeks which would be approximately 01/07/2018. He does not check his blood sugars at home. He is on oral agents only consisting of metformin and glimepiride. His A1c in [place] on 12/22/2017 was 6.5%. His LDL was 64. In [place], MRA of neck vessels with contrast 12/22/2017 showed no evidence of high-grade stenosis in the carotid or vertebral arteries within the neck. Carotid duplex on 12/22/2017 was negative. MRI with MRA of brain without contrast 12/22/2017 demonstrated an acute infarct in the frontotemporal subcortical and periventricular white matter on the left side. There is also a small focus of acute infarct in the posterior inferior left subcortical white matter. This seemed to be in the distribution of the left MCA. No hemorrhagic conversion was seen. MRA imaging shows signal dropout in the region of the left M1 and M2 division but it was felt to be artifactual in nature. Two-dimensional echocardiogram 12/22/2017 demonstrated increased left ventricular wall thickness, normal left ventricular cavity size, systolic function normal with estimated ejection fraction 50-55% without regional wall motion abnormalities. There is mild dilatation of left atrium, mild mitral regurgitation and trivial aortic regurgitation. Notation was made of ordering a bubble study but results of that are currently not seen in the transfer records. CHADsVASC score was at least 5. Recommendation for anticoagulation in 2-3 weeks was made. At present he is on Plavix and aspirin. He does have history of obstructive sleep apnea and uses his nasal CPAP at night. Has been on CPAP since 1990. He lives in [place] with his . They are in their own home. He does not use an assistive device at home. He has 3 steps to get up into his home. Railing is present on the right side and back of the house and bilateral railing is present in front. Prior to this event, the patient was very independent with ADLs and ambulation. He was an active rancher. At the present time the patient does require supervision for eating and grooming. He requires minimum assistance for bathing, upper and lower body dressing, toileting and transfers. He requires moderate assistance for toilet transfers, minimum assistance for walking with a rolling walker 80 feet. His speech is impaired. He does have some dysarthria. He is able to speak sentences. He will tend to repeat what has been recently stated. He is oriented and knows that he is in [facility]. He initially reported the date as December 24 (corrected), "81, no 91, no 2019, no 2018." Eventually he was able to get to the correct year. The following medical conditions are noted and require active monitoring and/or management: 1. 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 Atrial fibrillation. Has not been on anticoagulation recently. He is at risk for further cardiac problems including rapid ventricular response. 3. Diabetes mellitus type 2 not on long-term insulin. His A1c in [place] is good but he does not check his blood sugars at home. He is at risk for hypoglycemia as well as hyperglycemia in view of variable energy requirements here on rehabilitation. 4. Benign essential hypertension. His blood pressure has been elevated in [place] and this will be monitored carefully. The following therapies will be needed: 1. Physical therapy: for transfers and ambulation and stairs. 2. Occupational therapy: for ADL's and transfers. 3. Speech therapy: To assess and treat swallowing, cognition and linguistics 4. Medical management: for the above conditions. 5. 24 hour Rehabilitation Nursing to monitor and address the following: Close monitoring of neurologic status to monitor for evidence of evolution of stroke, close monitoring of blood sugars and blood pressures, reduce fall risk 6. Dietitian: In view of diabetes and swallowing difficulty PFS 1. Diabetes mellitus, on oral agents only, controlled based on A1c in [place] 2. Benign essential hypertension 3. 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 Obstructive sleep apnea 5. Chronic atrial fibrillation 6. Depression with anxiety 7. Deafness left ear 8. Hyperlipidemia 9. Gastroesophageal reflux disease Surgical History: 1. Appendectomy. 2. Circumcision. 3. Herniorrhaphy. 4. Tonsillectomy with adenoidectomy Family History: Patient's parents both reportedly of old age. Brother age 76. - Social History Smoking status: Never smoker Substance use type: does not use Alcohol intake: never Housing: house Household members: spouse Current occupational status: employed Current residence: Apartment/Private Home Social history: Patient lives in [place] with his . He remains active as a rancher. Review of Systems - Constitutional Constitutional: Present: fatigue, weakness. Absent: anorexia, chills, fever(s) , headache(s), lethargy, malaise, night sweats, weight gain, weight loss - EEMTT Eyes: Absent: blurry vision, change in vision, diplopia Mouth/Throat: Absent: changes in swallowing, painful swallowing, change in taste , bleeding gums, change in voice - Cardiovascular Cardiovascular: Absent: chest pain, palpitations, syncope, dyspnea on exertion, orthopnea, edema, cyanosis, heart murmur Rhythm: Present: abnormal rhythm Vascular: Present: pedal edema. Absent: intermittent claudication, unilateral swelling - Respiratory Respiratory: Absent: cough, dyspnea, hemoptysis, dyspnea on exertion, wheezing, pain on inspiration, chest congestion, excessive phlegm production - Gastrointestinal Gastrointestinal: Present: constipation (patient reports poor stool output over the last several days.), dyspepsia. Absent: abdominal pain, change in bowel habits, diarrhea, dysphagia, early satiety, hematochezia, melena, nausea, vomiting - Musculoskeletal Musculoskeletal: Present: abnormal gait, myalgias. Absent: arthralgias, back pain, joint swelling, limited range of motion, muscle weakness - Integumentary/Breasts Integumentary: Absent: alopecia, erythema, lesions, pruritus, rash, jaundice - Neurological Neurological: Present: abnormal gait, abnormal speech, frequent falls, other ( possible impaired cognition). Absent: abnormal movements, confusion, convulsions, dizziness, focal weakness, headache(s), loss of vision, memory loss , numbness, paresthesias, tremor(s) - Psychiatric Psychiatric: Present: anxiety, depression. Absent: abnormal sleep pattern - Endocrine Endocrine: Absent: cold intolerance, flushing, heat intolerance, palpitations - Hematologic/Lymphatic Hematologic/Lymphatic: Absent: easy bleeding, easy bruising, lymphadenopathy - Allergic/Immunologic Allergic/Immunologic: Absent: urticaria Medications Home Medications Medication Instructions Recorded Confirmed Type Aspirin 325 mg PO DAILY #0 11/16/11 History Clopidogrel Bisulfate [Plavix] 75 mg PO DAILY #0 11/16/11 History Digoxin 250 mcg PO DAILY #0 11/16/11 History Dutasteride [Avodart] 0.5 mg PO DAILY #0 11/16/11 History Furosemide [Lasix] 40 mg PO DAILY #0 11/16/11 History Lisinopril/Hydrochlorothiazide 1 tab PO BID #0 11/16/11 History (Zestoretic 20/12.5 Tablet) Metformin Hcl 1,000 mg PO BID #0 11/16/11 History Simvastatin [Zocor] 20 mg PO HS #0 11/16/11 History Verapamil HCl [Verapamil ER Pm] 200 mg PO DAILY #0 11/16/11 History Allergies Allergy/AdvReac Type Severity Reaction Status Date / Time No Known Allergies Allergy Unverified 11/16/11 17:39 Results IRU - Labs Labs: I have reviewed records from [place]. Exam Vital Signs: Temperature 97.7 F 12/24/17 17:05 Pulse Rate 75 12/24/17 17:05 Respiratory Rate 24 12/24/17 17:05 Blood Pressure 143/74 H 12/24/17 17:05 Pulse Oximetry 92 12/24/17 17:05 - Constitutional Present: no acute distress, well nourished, well developed, obese, cooperative - Routine HEENT Exam Head: Present: normocephalic, atraumatic. Absent: cushingoid faces, abrasion, laceration, hematoma Eye: Present: EOMI, PERRL (pupils are small). Absent: conjunctival icterus, scleral injection, periorbital swelling, nystagmus ENT: Present: mucous membranes dry, oropharynx clear, dentition normal - Routine Neck Exam Present: supple, full ROM, trachea midline. Absent: lymphadenopathy, thyromegaly, tenderness, swelling - Routine Chest/Breast/Axilla Exam Chest wall: Absent: tenderness, mass Axillae: Absent: lymphadenopathy, mass - Routine Respiratory Exam Present: CTA bilaterally. Absent: accessory muscle use, decreased breath sounds , prolonged expiratory phase, rales, respiratory distress, rhonchi, stridor, wheezes, crackles, distant breath sounds - Routine Cardiovascular Exam Present: S1, S2, murmur, irregularly irregular. Absent: gallop, S3, S4, click, irregular rhythm - Routine Abdominal Exam Present: soft, normoactive bowel sounds, non distended, non tender. Absent: rebound, guarding, firm, rigid, organomegaly, mass, hernia, wound - Routine Extremities Exam Present: edema, non tender, pulses intact, normal capillary refill. Absent: cyanosis, clubbing Comments: Venous stasis changes noted both lower extremities. - Routine Back/Spine/Pelvis Exam Back/Spine: Present: full ROM. Absent: scoliosis, kyphosis - Routine Skin Exam Present: intact, dry, warm. Absent: cyanosis, erythema, pallor, mottling, petechiae, urticaria, lesions, jaundice - Routine Neurological Exam Present: alert, oriented X3, CN II-XII intact, motor deficit (right facial droop present. Weakness noted on flexion and extension at right shoulder, right elbow and right hand cook frozen dessert. Fine motor movement reduced in right hand. Reduced strength at right hip flexion as well as dorsiflexion and plantar flexion at the ankle.), moving all extremities. Absent: normal speech (dysarthria noted. Questionable cognition.) - Routine Psychiatric Exam Present: normal affect, cooperative. Absent: depressed, anxious Comments: Difficult to assessment of status at present. He is awake and alert. He is somewhat oriented as described above. Uncertain with regard to anxiety/ depression as well as uncertain cognition otherwise. Sepsis Assessment - Evaluation Severe Sepsis: none seen IRU A/P (1) Status post cerebrovascular accident Current visit: Yes Status: Acute Patient has suffered a recent left middle cerebral artery CVA with right-sided weakness. He is at risk for further neurologic events and will need to be monitored carefully. In addition he requires a multidisciplinary approach with PT, OT and speech therapy in view of his multiple functional deficits. (2) Benign essential hypertension Current visit: Yes Status: Chronic His blood pressure has been elevated in [place]. This will be monitored carefully. He is at risk for hypertension as well as hypotension. (3) Diabetes mellitus Qualifiers: Diabetes mellitus type: type 2 Diabetes mellitus chcf insulin use: without chcf use Diabetes mellitus complication status: without complication Qualified Code(s): E11.9 - Type 2 diabetes mellitus without complications Current visit: Yes Status: Chronic With variable energy requirements involved in rehabilitation the patient is at risk for hyperglycemia or hypoglycemia and will be monitored carefully. (4) Atrial fibrillation, chronic Current visit: Yes Status: Chronic Patient remains in atrial fibrillation at present. He is at risk for uncontrolled ventricular response. He has not unit on full dose anticoagulation and this will be started in a couple of weeks on or about 01/04/2018. (5) Obstructive sleep apnea Current visit: Yes Status: Chronic DVT Prophylaxis: SCD's, Lovenox Resuscitation Status: Full Code - Course Hospital Course: Clifton Magallon MD: - Interventions to Obtain Goals Goals Progress/Modifications: This medically complex patient requires a multidisciplinary approach with physical therapy, occupational therapy and speech therapy. He will be monitored carefully by 24 hour rehabilitation nursing with medical supervision.
--- NOTE | 2017-12-24 18:03 | IRU 24Hr Post Admit Eval ---
24 Hr Post Admission Physical - Relevant Changes Relevant Changes: No Reviewed: I have reviewed the patient's information and concur with the finding and results of the pre-admission screen. Certification: I certify the patient for rehabilitation. - Patient Condition (1) Status post cerebrovascular accident Status: Acute Code(s): Z86.73 - Personal history of transient ischemic attack (TIA), and cerebral infarction without residual deficits Classification: Present on IRF Admission, IRF Tx That Should Address Diagnosis, Diagnosis Requiring Medical Follow Up (2) Benign essential hypertension Status: Chronic Code(s): I10 - Essential (primary) hypertension Classification: Present on IRF Admission, IRF Tx That Should Address Diagnosis, Diagnosis Requiring Medical Follow Up (3) Diabetes mellitus Status: Chronic Qualifiers: Diabetes mellitus type: type 2 Diabetes mellitus usp insulin use: without ocean transportation intermediary use Diabetes mellitus complication status: without complication Qualified Code(s): E11.9 - Type 2 diabetes mellitus without complications Code(s): E11.9 - Type 2 diabetes mellitus without complications Classification: Present on IRF Admission, IRF Tx That Should Address Diagnosis, Diagnosis Requiring Medical Follow Up (4) Atrial fibrillation, chronic Status: Chronic Code(s): I48.2 - Chronic atrial fibrillation Classification: Present on IRF Admission, IRF Tx That Should Address Diagnosis, Diagnosis Requiring Medical Follow Up (5) Obstructive sleep apnea Status: Chronic Code(s): G47.33 - Obstructive sleep apnea (adult) (pediatric) Classification: Present on IRF Admission, Diagnosis Requiring Medical Follow Up - Prior Functional Status Lives With: Spouse Residence Type: Apartment/Private Home Assitive Devices: None Prior Functional Status: Indep. at home or school, Indep. w/ IADL - Current Functional Status Current Level of Function: At the present time the patient does display dysarthria and reduced cognition. He tends to repeat statements back. He is somewhat oriented and knows that he is at [facility]. He requires minimum assistance for bathing as well as upper and lower body dressing, toileting and transfers. He requires moderate assistance for toilet transfers, minimum assistance for walking with a rolling walker 80 feet. His speech is impaired as described above. Failed Alternative Therapy: Arrived from Acute Care Patient Requirements: The patient requires oversight by rehabilitation physician to manage their rehabilitation treatment plan and multidisciplinary approach to care that can only be provided in an IRF and requires a multidisciplinary approach to care, provided by professional PTs, OTs, STs, dieticians, RTs, rehabilitation nurses and is not available in lesser levels of care. Limitations Req: Mobility Impairment, ADL Impairment, Cognitive Impairment Speech Therapy Minutes: 60 Physical Therapy Minutes: 60 Occupational Therapy Minutes: 60 Therapy: The patient is to receive therapy at least 5 days a week. - Complications/Comorbidities Impact on Functional Outcomes: The patient's recent CVA with right-sided weakness as well as his reduced cognition will negatively impact his functional outcome. Barriers to Discharge: Weakness, Balance, Endurance, Comprehension - Plan to Avoid Complications Plan to Avoid Complications: The patient cannot receive this care in a lesser intensive setting such as Care Home or Outpatient Therapy due to the patient requiring the following : This medically complex patient requires close 24-hour rehabilitation nursing monitoring of his blood sugars, blood pressures and neurologic status as well as cardiac status in view of his atrial fibrillation. The patient requires a multidisciplinary approach with physical therapy, occupational therapy and speech therapy with medical supervision. This clearly cannot be provided at a less intensive setting.
[2017-12-24] MEDS ORDERED: ACETAMINOPHEN 500 MG TABLET PO PRN (18:15)
[2017-12-24 18:20] VITALS: BMI 42.4
[2017-12-24] MEDS: GLIMEPIRIDE 2 MG TABLET PO SCH (19:02)
[2017-12-24] MEDS: BRIMONIDINE/TIMOLOL 0.2%-0.5% EYE DROPS 5ml OP SCH (20:57)
[2017-12-24] MEDS: LATANOPROST 0.005% EYE DROPS 2.5ml EACH EYE SCH (20:57)
[2017-12-24] MEDS: ATORVASTATIN 40 MG TABLET PO SCH (20:57)
[2017-12-25] MEDS: PANTOPRAZOLE 40 MG TABLET PO SCH (08:22)
[2017-12-25] MEDS: GLIMEPIRIDE 2 MG TABLET PO SCH ×2 (08:23→17:55)
[2017-12-25] MEDS: BRIMONIDINE/TIMOLOL 0.2%-0.5% EYE DROPS 5ml OP SCH ×2 (08:23→20:46)
[2017-12-25] MEDS: METFORMIN 1,000 MG TABLET PO SCH ×2 (08:23→17:55)
[2017-12-25] MEDS: CLOPIDOGREL 75 MG TABLET PO SCH (08:24)
[2017-12-25] MEDS: DIGOXIN 250 MCG TABLET PO SCH (08:24)
[2017-12-25] MEDS: CITALOPRAM 10 MG TABLET PO SCH (08:24)
[2017-12-25] MEDS: FINASTERIDE 5 MG TABLET PO SCH (08:25)
[2017-12-25] MEDS: ENOXAPARIN 40 MG/0.4 ML INJECTION SQ SCH (08:25)
[2017-12-25] MEDS: FEXOFENADINE 180 MG TABLET PO SCH (08:25)
[2017-12-25] MEDS: FUROSEMIDE 40 MG TABLET PO SCH (08:26)
[2017-12-25] MEDS: LISINOPRIL 20 MG TABLET PO SCH (08:26)
--- NOTE | 2017-12-25 11:45 | Consult Note ---
Consult Information - Data of Consult Consult date: 12/25/17 Requesting Physician: Clifton Magallon MD Primary Care Provider: Payton Turner MD - Consult Narrative Reason for consult: S/P CVA, medical management History of present illness: Mo Monte is a pleasant 72-year-old male patient of Dr. Payton Turner. He presented to the emergency department at [facility] in [place], [place] on 12/21/17 for evaluation of acute onset of right sided facial droop, confusion, dysarthria, garbled speech, expressive aphasia and disorientation. His symptoms reportedly started around 1615. His reported that he was outside mowing and when he attempted to get off the mower, he lost his balance and was noted to be drooling and felt cool and clammy to the touch. He arrived at the hospital in [place] around 1800 and had an initial NIH of 11, which later improved to 4. He was given ASA upon arrival. Upon arrival, he was quite altered and disorientated but his mentation improved slightly after a few hours with improvement in his speech. CT head in [place] was negative for any acute findings. He was subsequently transferred to [facility] in [place] for further evaluation and treatment. Upon arrival to [place], he was noted to have prominent right facial droop, right-sided weakness including both his upper and lower extremities and significant expressive aphasia. During his hospitalization in [place], he underwent MRI/MRA of the brain which revealed an acute infarct in the left frontotemporal subcortical and periventricular white matter along with a small focus of acute infarct in the posterior inferior subcortical white matter in the distribution of the left MCA territory. Carotid Doppler were unremarkable as well the MRA of the neck. Echocardiogram revealed left ventricular wall thickening with EF of 50-55% with normal systolic function and mild tricuspid and mitral regurg. He has a history of a- fib and had previously been anticoagulated on warfarin which was reportedly discontinued several years ago. He was started on Plavix in [place] with the recommendation of initiation of Eliquis on 01/04/18 given his CHADsVASC score of at least 5. He was transferred to IRU at [facility] on 12/24/17 for continued rehab for strengthening and improvement in functional abilities. The hospitalist service was consulted for medical management. He has a known history of diabetes mellitus with recent A1c of 6.5, as well as hypertension, hyperlipidemia, a-fib. Past Medical History Medical History Updates: 1. Diabetes mellitus, on oral agents only, controlled. 2. Benign essential hypertension. 3. 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 4. Obstructive sleep apnea with home CPAP. 5. Chronic atrial fibrillation. 6. Depression with anxiety. 7. Deafness left ear. 8. Hyperlipidemia. 9. Gastroesophageal reflux disease. 10. CAD. 11. Morbid obesity with BMI >40. 12. Glaucoma. Surgical History: 1. Appendectomy. 2. Circumcision. 3. Herniorrhaphy. 4. Tonsillectomy with adenoidectomy Family History: Patient's parents are both , reportedly from "old age". Brother age 76. Family History: As Above - Social History Smoking status: Never smoker Substance use type: does not use Alcohol intake frequency: does not drink Housing: house Household members: spouse Current occupational status: previously employed ([employer]) Does patient use chewing tobacco?: No Current residence: Apartment/Private Home Social history: PCP - Dr. Turner Review of Systems All systems PM: 10-point ROS was reviewed, no additional remarkable complaints except - Constitutional Constitutional: Absent: chills, fever(s), headache(s) - EENMT Eyes: Absent: change in vision, photophobia Ears: Absent: ear pain Balance: Absent: vertigo Nose: Absent: nosebleeds Mouth/Throat: Absent: sore throat, changes in swallowing - Cardiovascular Cardiovascular: Absent: chest pain, palpitations, syncope Rhythm: Present: abnormal rhythm Vascular: Absent: pallor of an extermity, unilateral swelling - Respiratory Respiratory: Absent: cough, dyspnea, hemoptysis - Gastrointestinal Gastrointestinal: Absent: abdominal pain, diarrhea, nausea, vomiting - Genitourinary Genitourinary: Absent: dysuria, flank pain, nocturia - Musculoskeletal Musculoskeletal: Present: muscle weakness (right sided). Absent: deformity - Integumentary/Breasts Integumentary: Absent: rash - Neurological Neurological: Present: focal weakness (right sided). Absent: dizziness, vertigo - Psychiatric Psychiatric: Present: anxiety, depression - Endocrine Endocrine: Absent: palpitations - Hematologic/Lymphatic Hematologic/Lymphatic: Present: easy bruising - Allergic/Immunologic Allergic/Immunologic: Absent: seasonal rhinorrhea Medications Home Medications Medication Instructions Recorded Confirmed Type Digoxin 250 mcg PO DAILY #0 11/16/11 12/24/17 History Furosemide [Lasix] 40 mg PO DAILY #0 11/16/11 12/24/17 History Acetaminophen [Acetaminophen Extra 500 mg PO Q6HPRN 12/24/17 12/24/17 History Strength] Atorvastatin Calcium 80 mg PO DAILY 12/24/17 12/24/17 History Brimonidine/Timolol Eye Drops 1 drop OP BID 12/24/17 12/24/17 History [Combigan Eye Drops] Citalopram [Celexa] 1 tab PO DAILY 12/24/17 12/24/17 History Clopidogrel Bisulfate [Clopidogrel] 1 tab PO DAILY 12/24/17 12/24/17 History Fexofenadine [Katty] 180 mg PO DAILY 12/24/17 12/24/17 History Finasteride [Proscar] 5 mg PO DAILY 12/24/17 12/24/17 History Glimepiride [Amaryl] 2 mg PO BID 12/24/17 12/24/17 History Latanoprost [Xalatan] 1 drop EACH EYE HS 12/24/17 12/24/17 History Lisinopril [Prinivil] 20 mg PO DAILY 12/24/17 12/24/17 History Metformin [Glucophage] 1 tab PO BIDWM 12/24/17 12/24/17 History Pantoprazole Sodium [Protonix] 1 tab PO ACB 12/24/17 12/24/17 History Verapamil HCl [Verapamil ER] 180 mg PO DAILY 12/24/17 12/24/17 History Allergies Allergy/AdvReac Type Severity Reaction Status Date / Time No Known Allergies Allergy Unverified 11/16/11 17:39 Exam Vital Signs: Temperature 97.8 F 12/25/17 08:00 Pulse Rate 94 12/25/17 08:24 Respiratory Rate 18 12/25/17 08:00 Blood Pressure 176/94 H 12/25/17 08:00 Pulse Oximetry 93 12/25/17 08:00 Height/Weight/BMI: Height 5 ft 7 in Weight 270 lb 15.17 oz Body Mass Index 42.4 Comments: Patient is resting in bed and reports he is ready for his afternoon nap. - Constitutional Present: no acute distress, well nourished, well developed, morbidly obese, cooperative - Routine HEENT Exam Head: Present: normocephalic, atraumatic Eye: Present: PERRL. Absent: conjunctival icterus ENT: Present: mucous membranes moist, oropharynx clear - Routine Neck Exam Present: supple, full ROM, trachea midline - Routine Chest/Breast/Axilla Exam Chest wall: Absent: pacemaker - Routine Respiratory Exam Present: decreased breath sounds. Absent: respiratory distress, wheezes - Routine Cardiovascular Exam Present: irregularly irregular - Routine Abdominal Exam Present: soft, normoactive bowel sounds, non tender - Routine Extremities Exam Present: edema (trace), non tender, pulses intact - Routine Back/Spine/Pelvis Exam Back/Spine: Present: full ROM. Absent: vertebral tenderness - Routine Skin Exam Present: intact, dry, warm Comments: Afebrile. - Routine Neurological Exam Present: alert, hearing grossly intact, facial asymmetry (right facial droop) - Routine Psychiatric Exam Present: cooperative Results - Labs CBC & Chem 7: 12/25/17 04:24 12/25/17 04:24 Assessment and Plan Assessment and Plan: Assessment: S/P post acute embolic CVA involving left MCA. Right hemiparesis Gait dysfunction - POA ADL dysfunction - POA Anemia, unspecific - POA A-fib. Diabetes mellitus, type 2. Hypertension. Obstructive sleep apnea with home CPAP. Depression with anxiety. Deafness in left ear. Hyperlipidemia. GERD. Hyperlipidemia. CAD. Plan - 12/25/17: Agree with admission to IRU under the care of Dr. Magallon. Encourage to encourage participation with therapies. Hospitalist service consulted for medical management. Labs on admission revealed mild anemia (hgb 12.2). Continue to monitor periodically throughout admission. Monitor blood sugars closely with BGMs. A1c on 12/22/17 was 6.5%. Continue home Glimepiride 2mg BID and metformin 1000mg BID. Sliding scale insulin as needed. Carb controlled diet. Monitor blood pressure closely with goal <160 systolic. Continue home verapamil 180mg daily, lisinopril 20mg daily. lasix 40mg daily and digoxin 250 mcg daily for a-fib. Plavix and ASA given recent CVA. Plan to initiate Eliquis on 01/04/18 given CHADsVASC score of at least 5. Monitor closely for signs of depression. Continue home Celexa. Monitor daily weight closely and for signs of fluid overload. Protonix for GERD and GI protection. Lovenox for DVT prophylaxis with plan to switch to Eliquis on 01/04/18. Upon discharge, patient's care will be returned to PCP, Dr. Turner. Patient requests to be FULL CODE. DVT Prophylaxis: SCD's, Lovenox GI Prophylaxis: Protonix Resuscitation Status: Full Code - Time spent with patient Time with patient PN: 70 minutes - Physician Narrative Physician: Ryne Farnsworth MD Narrative: Date: 12/25/17 Time: 1809 Have independently interviewed and examined pt. Chart reviewed. Case discussed with my PA. Above care plan developed with my supervision; agree with above. Tired this evening-hard work with therapy. Feels he did well; enjoyed the activities done. Feels making improvements in strength. Breathing well. No chest pain. Eating well-no ab pain or nausea. Lungs: decreased, no distress CV: irregularly irregular AB: soft obese NT/ND MSE: awake alert Plan: Agree with admission to IRU to maximize strength and functional status post CVA. Encourage participation with therapy. Continue with medications as outlined from acute stay. Monitor blood sugars - may need to adjust medication. Continue with BP control. Anticipate initiation of Eliquis on 01/04/18. Medically stable for IRU floor activities. Hospital Course Summary Disclaimer: The visit summary below is not to be considered part of the above Progress Note. Hospital Course: Plan - 12/25/17: Agree with admission to IRU under the care of Dr. Magallon. Encourage to encourage participation with therapies. Hospitalist service consulted for medical management. Labs on admission revealed mild anemia (hgb 12.2). Continue to monitor periodically throughout admission. Monitor blood sugars closely with BGMs. A1c on 12/22/17 was 6.5%. Continue home Glimepiride 2mg BID and metformin 1000mg BID. Sliding scale insulin as needed. Carb controlled diet. Monitor blood pressure closely with goal <160 systolic. Continue home verapamil 180mg daily, lisinopril 20mg daily. lasix 40mg daily and digoxin 250 mcg daily for a-fib. Plavix and ASA given recent CVA. Plan to initiate Eliquis on 01/04/18 given CHADsVASC score of at least 5. Monitor closely for signs of depression. Continue home Celexa. Monitor daily weight closely and for signs of fluid overload. Protonix for GERD and GI protection. Lovenox for DVT prophylaxis with plan to switch to Eliquis on 01/04/18. Upon discharge, patient's care will be returned to PCP, Dr. Turner. Patient requests to be FULL CODE.
--- NOTE | 2017-12-25 12:03 | IRU Progress Note ---
- Subjective/Serverity of Illness Date: 12/25/17 Mr. Monte was interviewed and examined in his room on inpatient rehabilitation. He reports that he slept reasonably well and used his CPAP all night. He does report some fatigue. He denies any shortness of breath. He denies chest pain. He tends to minimize his symptoms it seems. His was present today during the interview and examination. I discussed with her as well as the patient the issue of resuscitation. She does have legal papers with her and the patient does have a living will which I reviewed. He otherwise does not have a separate "DO NOT RESUSCITATE" order. I reviewed this with the patient and his . At present he does wish to be resuscitated in the event of a cardiac or pulmonary arrest. Review of his labs indicates his blood sugars remain a bit elevated. Blood pressure is also elevated. He is getting acquainted to the rehabilitation milieu and has been evaluated by PT, OT and speech therapy. Update on medical issues we are actively monitoring and managing as follows: 1. Status post acute embolic CVA involving left middle cerebral artery: Continues to demonstrate some right-sided weakness. His speech is mildly dysarthric. He is being evaluated by speech therapy. 2. Atrial fibrillation. Has not been on anticoagulation recently. He is at risk for further cardiac problems including rapid ventricular response. Recommendations are to wait on Eliquis until January 04. He remains on Plavix which , as far as I can tell, is a new medication for him. We'll discuss with the hospitalist service in this regard. 3. Diabetes mellitus type 2 not on long-term insulin. Current blood sugars are 205 and 140. We will continue to monitor. 4. Benign essential hypertension. His blood pressures remain elevated at around 150-170. Management per hospitalist service. Exam Vital Signs: Temperature 97.8 F 12/25/17 08:00 Pulse Rate 94 12/25/17 08:24 Respiratory Rate 18 12/25/17 08:00 Blood Pressure 176/94 H 12/25/17 08:00 Pulse Oximetry 93 12/25/17 08:00 Height/Weight/BMI: Height 1.7 m Weight 122.9 kg Body Mass Index 42.4 - Constitutional Present: no acute distress, well nourished, well developed, morbidly obese, cooperative Comments: He tells me he just wants to go home. - Routine HEENT Exam Head: Present: normocephalic Eye: Present: EOMI, PERRL ENT: Present: mucous membranes moist, oropharynx clear, dentition normal - Routine Neck Exam Present: supple - Routine Respiratory Exam Present: CTA bilaterally. Absent: wheezes - Routine Cardiovascular Exam Present: S1, S2, murmur, irregularly irregular - Routine Abdominal Exam Present: soft, normoactive bowel sounds, non distended. Absent: tenderness - Routine Extremities Exam Present: normal capillary refill - Routine Skin Exam Present: dry, warm - Routine Neurological Exam Present: alert, oriented X3, CN II-XII intact, motor deficit (he has mild right- sided weakness involving the right upper extremity and right lower extremity. He can lift the right leg off the bed against resistance although it is weaker than the left side. Likewise, the right arm is minimally weaker than the left side although upper extremity strength appears to be overall reasonably well- maintained.) - Routine Psychiatric Exam Present: normal affect, cooperative Comments: It is a bit too early to determine his degree of insight and judgment. He tends to minimize things a bit. In addition his speech may be a limitation on what he is actually thinking. Results IRU - Labs Labs: Patient's hemoglobin is stable at 12 g percent. His vital signs are indicated hypertension. Blood sugars are reviewed as well. IRU A/P (1) Status post cerebrovascular accident Current visit: Yes Status: Acute Patient neurologic status appears to be stable at present. He remains on Plavix. Keven recommended waiting a couple of weeks before we start Eliquis which would be on January 04. I will discuss with the hospitalist service in this regard. (2) Benign essential hypertension Current visit: Yes Status: Chronic Blood pressures are running a bit high. (3) Diabetes mellitus Qualifiers: Diabetes mellitus type: type 2 Diabetes mellitus group home insulin use: without group home use Diabetes mellitus complication status: without complication Qualified Code(s): E11.9 - Type 2 diabetes mellitus without complications Current visit: Yes Status: Chronic We will continue to monitor his blood sugars. Remains on oral agents only. (4) Atrial fibrillation, chronic Current visit: Yes Status: Chronic (5) Obstructive sleep apnea Current visit: Yes Status: Chronic He reports he is using his CPAP all night. DVT Prophylaxis: SCD's, Lovenox Resuscitation Status: Full Code - Course Hospital Course: Clifton Magallon MD: 12/25/17 12:06 Blood pressures are a bit high. Neurologically he seems stable. Weight on Eliquis until January 04. - Interventions to Obtain Goals OT Treatment Plan: ADL (Basic Care), IADL, UE Functional Training Goals Progress/Modifications: This patient is somewhat medically complex in view of his atrial fibrillation and diabetes and hypertension as well as his sleep apnea. He is being assessed by speech therapy as well as PT and OT. Blood sugars are perhaps a bit high and we will monitor this. His blood pressures are running too high and we will discuss this with the hospitalist service. Neurologically he seems to be stable although does have right-sided weakness. Speech is mildly dysarthric. We will work on medical management as well as functional improvement and I would anticipate a good outcome.Please note that the patient's individual plan of care was developed and documented today, requiring review of therapy notes, medical conditions and anticipated functional recovery. This required additional medical decision making with regard to interaction of the patient's medical issues with the anticipated functional recovery. Please see separate document
--- NOTE | 2017-12-25 12:10 | IRU Plan of Care ---
[facility] Overall Plan of Care - Date Date: 12/25/17 - Patient Impairments (1) Status post cerebrovascular accident Code(s): Z86.73 - Personal history of transient ischemic attack (TIA), and cerebral infarction without residual deficits Status: Acute Classification: Present on IRF Admission, IRF Tx That Should Address Diagnosis, Diagnosis Requiring Medical Follow Up (2) Benign essential hypertension Code(s): I10 - Essential (primary) hypertension Status: Chronic Classification: Present on IRF Admission, IRF Tx That Should Address Diagnosis, Diagnosis Requiring Medical Follow Up (3) Diabetes mellitus Qualifiers: Diabetes mellitus type: type 2 Diabetes mellitus fci insulin use: without termite helper use Diabetes mellitus complication status: without complication Qualified Code(s): E11.9 - Type 2 diabetes mellitus without complications Code(s): E11.9 - Type 2 diabetes mellitus without complications Status: Chronic Classification: Present on IRF Admission, IRF Tx That Should Address Diagnosis, Diagnosis Requiring Medical Follow Up (4) Atrial fibrillation, chronic Code(s): I48.2 - Chronic atrial fibrillation Status: Chronic Classification: Present on IRF Admission, IRF Tx That Should Address Diagnosis, Diagnosis Requiring Medical Follow Up (5) Obstructive sleep apnea Code(s): G47.33 - Obstructive sleep apnea (adult) (pediatric) Status: Chronic Classification: Present on IRF Admission, Diagnosis Requiring Medical Follow Up - Relevant Changes Relevant Changes: No Reviewed: I have reviewed the patient's information and concur with the finding and results of the pre-admission screen. Certification: I certify the patient for rehabilitation. - Medical Prognosis Medical Prognosis: Good Vital Signs: Last Vital Signs Temp 97.8 F 12/25/17 08:00 Pulse 94 12/25/17 08:24 Resp 18 12/25/17 08:00 BP 176/94 H 12/25/17 08:00 Pulse Ox 93 12/25/17 08:00 - Anticipated Interventions Anticipated Interventions: The patient requires inpatient IRF care for PT, OT, and/or ST for residuals remaining from left hemispheric CVA resulting in muscular weakness and strength deficits. Strength Deficits: Right Upper Extremity, Right Lower Extremity - Current Functional Status Failed Alternative Therapy: Arrived from Acute Care Patient Requires: The patient requires oversight by rehabilitation physician to manage their rehabilitation treatment plan and multidisciplinary approach to care that can only be provided in an IRF and requires a multidisciplinary approach to care, provided by professional PTs, OTs, STs, rehabilitation nurses, and may require STs, dieticians, and RTS. This is not available in lesser levels of care. Speech-Language Pathology Minutes: 60 Physical Therapy Minutes: 60 Occupational Therapy Minutes: 60 Therapy: The patient is to receive therapy at least 5 days a week. - Anticipated LOS/Outcomes Anticipated Functional Outcome: It is anticipated that the patient's blood pressure and blood sugars will be adequately controlled. It is anticipated that he will be able to tolerate Eliquis without evidence of bleeding and with no further neurologic deficits identified. It is further anticipated that he will be able to return home at modified independent to independent level of functioning with efforts undertaken to minimize caregiver burden. He will likely be able to perform ADLs with modified independent level of function or better, ambulate at modified independent level or better. He will likely require assistance with IADLs due to cognition deficits. Anticipated Length of Stay (days): 14 Anticipated DC Destination: Home, Self Care, Home Health Service Home Safety Plan: The patient will be provided with the development of a Home Safety Plan for return to a home or home-like environment and and to ensure safety post discharge. - Plan to Avoid Complications Barriers to Attaining Goals: Weakness, Endurance, Comprehension, Medical Limitation Plan to Avoid Complications: The patient cannot receive this care in a lesser intensive setting such as Penitentiary or Outpatient Therapy due to the patient requiring the following : This patient requires a multidisciplinary approach with PT, OT and speech therapy in view of his multiple identified functional deficits. He requires assistance with cognition, memory, linguistics as well as ADLs, transfers and ambulation. He requires 24-hour rehabilitation nursing monitoring of his neurologic status, cardiac status in view of his atrial fibrillation and hypertension as well as close monitoring of his blood sugars. He requires medical supervision in view of these complex medical issues.
[2017-12-25] MEDS: ATORVASTATIN 40 MG TABLET PO SCH (20:45)
[2017-12-25] MEDS: LATANOPROST 0.005% EYE DROPS 2.5ml EACH EYE SCH (20:46)
[2017-12-26] MEDS: PANTOPRAZOLE 40 MG TABLET PO SCH (06:07)
[2017-12-26] MEDS: ENOXAPARIN 40 MG/0.4 ML INJECTION SQ SCH (08:36)
[2017-12-26] MEDS: GLIMEPIRIDE 2 MG TABLET PO SCH ×2 (08:37→17:22)
[2017-12-26] MEDS: CLOPIDOGREL 75 MG TABLET PO SCH (08:37)
[2017-12-26] MEDS: CITALOPRAM 10 MG TABLET PO SCH (08:37)
[2017-12-26] MEDS: LISINOPRIL 20 MG TABLET PO SCH (08:37)
[2017-12-26] MEDS: FINASTERIDE 5 MG TABLET PO SCH (08:37)
[2017-12-26] MEDS: FEXOFENADINE 180 MG TABLET PO SCH (08:37)
[2017-12-26] MEDS: FUROSEMIDE 40 MG TABLET PO SCH (08:37)
[2017-12-26] MEDS: DIGOXIN 250 MCG TABLET PO SCH (08:38)
[2017-12-26] MEDS: METFORMIN 1,000 MG TABLET PO SCH ×2 (08:38→17:22)
[2017-12-26] MEDS: BRIMONIDINE/TIMOLOL 0.2%-0.5% EYE DROPS 5ml OP SCH ×2 (08:39→20:53)
--- NOTE | 2017-12-26 11:23 | IRU Progress Note ---
- Subjective/Serverity of Illness Date: 12/26/17 Mr. Monte was evaluated in his room on inpatient rehabilitation. His is present. He has been falling asleep during the daytime. I asked the patient and his if this was typical for him. She says that it is. He does use his nasal CPAP all night every night and he confirms that he does this. He is progressing with therapy. Pretherapy update indicates that he requires minimum assistance for upper body dressing, contact guard assistance for lower body dressing and contact-guard assistance for toilet transfers. Bed/chair/ wheelchair transfers are performed with contact-guard assistance. Is able to ambulate 165 feet with a front-wheeled walker with contact-guard assistance. He continues to demonstrate some degree of right-sided weakness although it is minimal at present. Continues to work with speech therapy for cognition/ linguistic therapy. He has mild to moderate deficits noted. Update on medical issues we are actively monitoring and managing as follows: 1. 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 No new neurologic events are noted. 2. Atrial fibrillation. His heart sounds are distant. It is difficult for me to determine if he is in atrial fibrillation or not. He is asymptomatic. Eliquis is planned to start on January 04. 3. Diabetes mellitus type 2 not on long-term insulin. Blood sugars are reviewed and are running around 200 systolic. No hypoglycemic episodes are noted. 4. Benign essential hypertension. Blood pressures here are running in the 150 systolic range.. Exam Vital Signs: Temperature 97.9 F 12/26/17 07:30 Pulse Rate 72 12/26/17 08:38 Respiratory Rate 22 12/26/17 07:30 Blood Pressure 159/93 H 12/26/17 07:30 Pulse Oximetry 92 12/26/17 07:30 Height/Weight/BMI: Height 1.7 m Weight 122.9 kg Body Mass Index 42.4 - Constitutional Present: no acute distress, well nourished, well developed, morbidly obese, cooperative - Routine HEENT Exam Eye: Present: EOMI ENT: Present: mucous membranes moist, oropharynx clear - Routine Respiratory Exam Present: decreased breath sounds, CTA bilaterally. Absent: wheezes - Routine Cardiovascular Exam Present: RRR, S1, S2. Absent: murmur - Routine Abdominal Exam Present: soft, normoactive bowel sounds, non distended. Absent: tenderness - Routine Extremities Exam Present: no edema, normal capillary refill - Routine Skin Exam Present: dry, warm - Routine Neurological Exam Present: alert, oriented X3, CN II-XII intact, motor deficit (very mild reduced strength right upper and lower extremity. Mild right facial droop. Speech is fluent.) - Routine Psychiatric Exam Present: normal affect. Absent: good insight, good judgment Results IRU - Labs Labs: Have reviewed chart data. IRU A/P (1) Status post cerebrovascular accident Current visit: Yes Status: Acute He appears to be neurologically stable with only minimal decreased strength in the right side. He is progressing with therapies. (2) Benign essential hypertension Current visit: Yes Status: Chronic Blood pressure improved but still running slightly high at 150 systolic. (3) Diabetes mellitus Qualifiers: Diabetes mellitus type: type 2 Diabetes mellitus halfway insulin use: without halfway use Diabetes mellitus complication status: without complication Qualified Code(s): E11.9 - Type 2 diabetes mellitus without complications Current visit: Yes Status: Chronic Remains on oral agents only. Sugars are running about 200. No hypoglycemic episodes. (4) Atrial fibrillation, chronic Current visit: Yes Status: Chronic (5) Obstructive sleep apnea Current visit: Yes Status: Chronic Patient continues to have daytime sleepiness. Apparently this is not new. He reports that he is using his CPAP at night. We will plan to check an overnight oximetry prior to dismissal to check his oxygen levels as a surrogate to see if his CPAP is working adequately. DVT Prophylaxis: SCD's, Lovenox Resuscitation Status: Full Code - Course Hospital Course: Clifton Magallon MD: 12/25/17 12:06 Blood pressures are a bit high. Neurologically he seems stable. Weight on Eliquis until January 04. 12/26/17 11:25 Progressing with therapy. Blood sugars are running around 200. Neurologically he is stable with only minimal weakness on the right side. He is quite sleepy during the daytime and has to be awakened. Plan for overnight oximetry on CPAP tomorrow night. - Interventions to Obtain Goals PT Treatment Plan: Balance/Proprioception, Functional Activities, Gait Training , Patient/Family Education, Therapeutic Exercise OT Treatment Plan: ADL (Basic Care), IADL, UE Functional Training Goals Progress/Modifications: Patient is progressing with therapy. Medically he seems stable although blood sugars are running around 200 and blood pressures remain slightly up but 150. His lungs are clear. He is excessively sleepy during the daytime which apparently is not a new issue for him according to his . I'm wondering if his CPAP is working adequately. We will check an overnight oximetry prior to dismissal and I have scheduled this for tomorrow night. Otherwise continue therapies including PT, OT and speech therapy. It was recommended that he wait on the Eliquis until January 04.
[2017-12-26] MEDS: ATORVASTATIN 40 MG TABLET PO SCH (20:52)
[2017-12-26] MEDS: LATANOPROST 0.005% EYE DROPS 2.5ml EACH EYE SCH (20:53)
[2017-12-27] MEDS: PANTOPRAZOLE 40 MG TABLET PO SCH (06:38)
[2017-12-27] MEDS: CITALOPRAM 10 MG TABLET PO SCH (08:33)
[2017-12-27] MEDS: BRIMONIDINE/TIMOLOL 0.2%-0.5% EYE DROPS 5ml OP SCH ×2 (08:33→21:11)
[2017-12-27] MEDS: GLIMEPIRIDE 2 MG TABLET PO SCH ×2 (08:33→17:22)
[2017-12-27] MEDS: METFORMIN 1,000 MG TABLET PO SCH ×2 (08:33→17:22)
[2017-12-27] MEDS: FEXOFENADINE 180 MG TABLET PO SCH (08:34)
[2017-12-27] MEDS: ENOXAPARIN 40 MG/0.4 ML INJECTION SQ SCH (08:34)
[2017-12-27] MEDS: CLOPIDOGREL 75 MG TABLET PO SCH (08:34)
[2017-12-27] MEDS: DIGOXIN 250 MCG TABLET PO SCH (08:34)
[2017-12-27] MEDS: FINASTERIDE 5 MG TABLET PO SCH (08:34)
[2017-12-27] MEDS: LISINOPRIL 20 MG TABLET PO SCH (08:35)
[2017-12-27] MEDS: FUROSEMIDE 40 MG TABLET PO SCH (08:35)
[2017-12-27 21:01] VITALS: PULSE 65
[2017-12-27] MEDS: ATORVASTATIN 40 MG TABLET PO SCH (21:10)
[2017-12-27] MEDS: LATANOPROST 0.005% EYE DROPS 2.5ml EACH EYE SCH (21:10)
[2017-12-28] MEDS: PANTOPRAZOLE 40 MG TABLET PO SCH (05:53)
[2017-12-28 08:11] VITALS: BP 159/69; RESP 16; TEMP 97.7; O2SAT 96
[2017-12-28] MEDS: METFORMIN 1,000 MG TABLET PO SCH (08:12)
[2017-12-28] MEDS: FUROSEMIDE 40 MG TABLET PO SCH (08:12)
[2017-12-28] MEDS: DIGOXIN 250 MCG TABLET PO SCH (08:12)
[2017-12-28] MEDS: FEXOFENADINE 180 MG TABLET PO SCH (08:12)
[2017-12-28] MEDS: CITALOPRAM 10 MG TABLET PO SCH (08:12)
[2017-12-28] MEDS: CLOPIDOGREL 75 MG TABLET PO SCH (08:12)
[2017-12-28] MEDS: FINASTERIDE 5 MG TABLET PO SCH (08:12)
[2017-12-28] MEDS: GLIMEPIRIDE 2 MG TABLET PO SCH (08:13)
[2017-12-28] MEDS: LISINOPRIL 20 MG TABLET PO SCH (08:21)
[2017-12-28] MEDS: ENOXAPARIN 40 MG/0.4 ML INJECTION SQ SCH (10:03)
[2017-12-28] MEDS: BRIMONIDINE/TIMOLOL 0.2%-0.5% EYE DROPS 5ml OP SCH (10:03)
--- NOTE | 2017-12-28 12:04 | IRU Progress Note ---
- Subjective/Serverity of Illness Date: 12/28/17 Mr. Monte was interviewed and examined in his room on inpatient rehabilitation. He feels as though he is doing well. He continues to work with speech therapy, occupational therapy and physical therapy. He is becoming more independent with his ambulation. He continues to demonstrate a bit of right-sided weakness although it is markedly improved. His blood pressures continue to be elevated at around 150-160. Blood sugars are monitored and are doing better at around 150-170. Remains on oral agents. He remains on Plavix. Anticipated starting date of Eliquis is January 04 per recommendation from [facility]. He did undergo overnight oximetry on CPAP. This was ordered because he was still sleepy during the daytime. Machine was checked by respiratory therapy and felt to be functioning normally. On room air with CPAP his saturations did drop to a low of 73%. They were less than 90% about 51 minutes of the time. I discussed this with the patient and his today. Exam Vital Signs: Temperature 97.7 F 12/28/17 08:00 Pulse Rate 65 12/28/17 08:12 Respiratory Rate 16 12/28/17 08:00 Blood Pressure 159/69 H 12/28/17 08:00 Pulse Oximetry 96 12/28/17 08:00 Height/Weight/BMI: Height 1.7 m Weight 122.9 kg Body Mass Index 42.4 - Constitutional Present: well nourished, well developed, cooperative Comments: easily fatigued - Routine HEENT Exam Eye: Present: EOMI ENT: Present: mucous membranes moist, oropharynx clear - Routine Respiratory Exam Present: decreased breath sounds, CTA bilaterally. Absent: wheezes - Routine Cardiovascular Exam Present: S1, S2, murmur, irregularly irregular - Routine Abdominal Exam Present: soft, normoactive bowel sounds, non distended. Absent: tenderness - Routine Extremities Exam Present: normal capillary refill - Routine Skin Exam Present: dry, warm - Routine Neurological Exam Present: alert, oriented X3, CN II-XII intact, motor deficit (very mild reduced strength upon flexion at the right upper extremity compared to left.) - Routine Psychiatric Exam Present: normal affect Results IRU - Labs Labs: I reviewed his overnight oximetry. IRU A/P (1) Status post cerebrovascular accident Current visit: Yes Status: Acute Functionally he is doing better. Continues to require PT, OT and speech therapy in a home health setting. (2) Benign essential hypertension Current visit: Yes Status: Chronic Blood pressures are running a bit high. (3) Diabetes mellitus Qualifiers: Diabetes mellitus type: type 2 Diabetes mellitus oysterman insulin use: without oysterman use Diabetes mellitus complication status: without complication Qualified Code(s): E11.9 - Type 2 diabetes mellitus without complications Current visit: Yes Status: Chronic (4) Atrial fibrillation, chronic Current visit: Yes Status: Chronic (5) Obstructive sleep apnea Current visit: Yes Status: Chronic He is demonstrating nocturnal hypoxemia on overnight oximetry even with CPAP. He will require supplemental oxygen at night. DVT Prophylaxis: SCD's, Lovenox Resuscitation Status: Full Code - Course Hospital Course: Clifton Magallon MD: 12/25/17 12:06 Blood pressures are a bit high. Neurologically he seems stable. Weight on Eliquis until January 04. 12/26/17 11:25 Progressing with therapy. Blood sugars are running around 200. Neurologically he is stable with only minimal weakness on the right side. He is quite sleepy during the daytime and has to be awakened. Plan for overnight oximetry on CPAP tomorrow night. 12/28/17 12:06 Overnight oximetry demonstrates hypoxemia down to 73%. Neurologically he is stable and improving functionally. - Interventions to Obtain Goals PT Treatment Plan: Balance/Proprioception, Functional Activities, Gait Training , Patient/Family Education, Therapeutic Exercise OT Treatment Plan: ADL (Basic Care), IADL, UE Functional Training Goals Progress/Modifications: I discussed the issue of oxygen requirements at night with respiratory therapy as well as with the patient and his . He will likely need supplemental oxygen at night in view of his hypoxemia despite use of CPAP. This should improve his mentation during the daytime as well. In addition, neurologically he remained stable but continues to have some functional deficits. Multidisciplinary team meeting today for further input regarding dismissal. Blood sugars and blood pressures reviewed as well.
--- NOTE | 2017-12-28 13:24 | IRU Team Meeting ---
IRU Team Meeting - Nursing Bladder Assistive Devices Utilized:: Medication Bladder Management Level of Assist: Modified Independent Bladder Frequency of Accidents: No accidents Bowel Assistive Devices Utilized:: Medication Bowel Management Level of Assist: Modified Independent Bowel Frequency of Accidents: No accidents Vital Signs: Vital Signs - 24 hr 12/27/17 16:00 12/27/17 21:00 12/27/17 22:04 Temperature 98.0 F 97.6 F Pulse Rate 66 65 Respiratory Rate 20 32 H Blood Pressure 150/75 H 160/98 H Pulse Oximetry 95 95 94 12/28/17 00:28 12/28/17 02:00 12/28/17 08:00 Temperature 97.7 F Pulse Rate 65 Respiratory Rate 16 Blood Pressure 159/69 H Pulse Oximetry 94 91 96 12/28/17 08:12 Temperature Pulse Rate 65 Respiratory Rate Blood Pressure Pulse Oximetry Current Medications: Acetaminophen (Tylenol) 500 mg PO Q6H PRN Atorvastatin Calcium (Lipitor) 80 mg PO HS [facility] Last Admin: 12/27/17 21:10 Dose: 80 mg Brimonidine/Timolol (Combigan Eye Drops) 1 drop OP BID [facility] Last Admin: 12/28/17 10:03 Dose: 1 drop Citalopram Hydrobromide (Celexa) 10 mg PO DAILY [facility] Last Admin: 12/28/17 08:12 Dose: 10 mg Clopidogrel Bisulfate (Plavix) 75 mg PO DAILY [facility] Last Admin: 12/28/17 08:12 Dose: 75 mg Digoxin (Lanoxin) 250 mcg PO DAILY [facility] Last Admin: 12/28/17 08:12 Dose: 250 mcg Enoxaparin Sodium (Lovenox) 40 mg SQ DAILY [facility] Last Admin: 12/28/17 10:03 Dose: 40 mg Fexofenadine HCl (Katty) 180 mg PO DAILY [facility] Last Admin: 12/28/17 08:12 Dose: 180 mg Finasteride (Proscar) 5 mg PO DAILY [facility] Last Admin: 12/28/17 08:12 Dose: 5 mg Furosemide (Lasix 40 Mg Tab) 40 mg PO DAILY [facility] Last Admin: 12/28/17 08:12 Dose: 40 mg Glimepiride (Amaryl) 2 mg PO BIDWM [facility] Last Admin: 12/28/17 08:13 Dose: 2 mg Latanoprost (Xalatan) 1 drops EACH EYE [facility] Last Admin: 12/27/17 21:10 Dose: 1 drops Lisinopril (Prinivil) 20 mg PO DAILY [facility] Last Admin: 12/28/17 08:21 Dose: 20 mg Metformin HCl (Glucophage) 1,000 mg PO BIDWM [facility] Last Admin: 12/28/17 08:12 Dose: 1,000 mg Pantoprazole Sodium (Protonix Tab) 40 mg PO ACB [facility] Last Admin: 12/28/17 05:53 Dose: 40 mg Verapamil HCl (Calan Sr) 180 mg PO DAILY [facility] Last Admin: 12/28/17 08:12 Dose: 180 mg Current Medical Issues: Recent embolic CVA involving left hemisphere and right side of body, atrial fibrillation, obstructive sleep apnea with nocturnal hypoxemia Comments: I certify that I personally led the interdisciplinary team meeting and agree with comments, barriers and goals indicated. Team meeting was held in the patient's room with the patient and the following family members present: Patient's Mr. Monte presented with recent CVA previously evaluated in [place]. He is receiving speech therapy, occupational therapy and physical therapy. His swallowing has improved and is stable. He does have diabetes and his blood sugars have been improved with regard to control. Blood pressures have been a little elevated. - Speech Therapy Patient did have some dysphagia but that has improved. Speech therapy continues to follow for cognition and it is recommended that this be continued as an outpatient. - Physical Therapy Bed, Chair, Wheelchair Transfer Assist: Modified Independent Ambulation Ability: Independent Ambulation Distance: 500 Stair Climbing Ability: Modified Independent Number of Steps Climbed: 12 Car Transfer Ability: Stand By Assist/Supervision Comments: Patient has met goals regarding physical therapy. He is able to ambulate independently over 500 feet. - Occupational Therapy Eating Ability: Independent Grooming Ability: Independent Bathing Ability: Modified Independent Upper Body Dressing Ability: Independent Lower Body Dressing Ability: Modified Independent Tub Transfer Assist: Modified Independent Toileting Assist: Independent Toilet Transfer Assist: Independent Comments: He is able to perform ADL routine with modified independent to independent level. Recommend long handled shoe horn upon dismissal to home. - Goals Physical Therapy Goals: 12/28/17. 1.) Discharge Planning Occupational Therapy Goals: OT goals 12/28/17: 1.) Light meal prep with modified independence. 2.) Discharge planning. Speech Therapy Goals: Attention: Short term goal: Pt will demonstrate sustained attention by maintaining focus during a task for 30 minutes with minimal verbal cues. Writing: Short term goals: Pt will write personal/ orientation/situational information with 80% accuracy requiring minimal verbal cues. (met). Auditory Comprehension. Short term goal: Pt will follow 3 step commands related to functional living environment with 80% accuracy and minimal cues. After listening to a 3-5 sentence paragraph, the pt will answer simple yes/no and wh questions with 80% accuracy. - Barriers to Discharge Barriers to Attaining Goals: Other (discharge planning re: nocturnal O2) - Care Plan Anticipated Length of Stay (days): 0 Anticipated DC Destination: Home, Self Care I have led this team conference and agree with the plan. Interventions/Goals: Arrangements will be made for home oxygen therapy at night. Anticipate safe transition to home environment today.
--- NOTE | 2017-12-28 13:48 | Discharge Summary ---
Discharge Information Date of admission: 12/24/17 16:40 Anticipated date of discharge: 12/28/17 Attending Physician: Clifton Magallon MD Primary care physician: Payton Turner MD Consults: 12/24/17 17:30 Physician Consult [CONS] Routine Consulting Provider: Kya Hermosillo Reason For Exam: medical management Ordering Provider has Notified Ice Cream Vendor: No 12/24/17 17:44 Dietary Consult [CONS] Routine Comment: Reason For Exam: diabetes, recent CVA 12/28/17 07:16 Case Management Consult [Case Management Consult] [CONS] Routine Reason For Exam: OVERNIGHT OXIMETRY - Discharge Diagnosis (1) Status post cerebrovascular accident Status: Acute (2) Benign essential hypertension Status: Chronic (3) Diabetes mellitus Status: Chronic (4) Atrial fibrillation, chronic Status: Chronic (5) Obstructive sleep apnea Status: Chronic 1. Status post acute embolic CVA to left middle cerebral artery distribution, affecting right side of body with right arm and leg weakness and cognition deficits 2. Atrial fibrillation, chronic 3. Benign essential hypertension 4. Diabetes mellitus type 2 not on insulin and without complications 5. Obstructive sleep apnea 6. Nocturnal hypoxemia - Laboratory Labs: 12/25/17 04:24 12/25/17 04:24 History of Present Illness HPI: Mr. 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 He was mowing his yard at home and suddenly developed confusion, slurred speech and right-sided weakness on 12/21/2017. He presented to the emergency department at [place], [place] and was transferred subsequently to [facility] in [place]. He was noted to have right-sided facial droop as well as confusion and dysarthria with expressive dysphasia and disorientation. There was a significant delay between onset of symptoms and when he presented to the emergency department and he did not receive TPA therefore. He was noted to have atrial fibrillation. His blood pressure was a bit elevated at 170/91. MRA of neck vessels with contrast on 12/22/2017 was negative for high -grade stenosis. Carotid duplex was also negative. MRI with MRA of brain without contrast on 12/22/2017 demonstrate an acute infarct in the frontal temporal subcortical and periventricular white matter on the left side. There was also a small focus of acute infarct in the posterior inferior left subcortical white matter. Recommendation was to start Plavix at present and then transition to Eliquis in about 2 weeks which would be approximately 2017. Other medical issues include obstructive sleep apnea, diabetes mellitus and hypertension. The patient had developed multiple functional deficits and, with his multiple medical problems, it was felt that he would be a good candidate for inpatient rehabilitation where he was transferred on 12/24/2017. Hospital Course This is a general summary of the patient's hospital course. For more details refer to the complete medical record. The patient was admitted to acute inpatient rehabilitation where he was followed by the hospitalist service and Dr. Magallon, medical records assistant of acute inpatient rehabilitation. His blood sugars were monitored and most of them were in the 120-150 range. He was on a 2000-calorie consistent carbohydrate, low-fat diet. His blood pressures were monitored and typically were in the 140-150 systolic range. During his stay on rehabilitation he was noted to be excessively sleepy. This was despite using his nasal CPAP at night here. For this reason an overnight oximetry was performed on the night of 12/27/2017 on room air and on CPAP. Despite use of CPAP his saturations did drop to 73% at night. He was less than 90% for over 50 minutes. He was felt to be a candidate for supplemental oxygen at nighttime and arrangements were made to start nocturnal oxygen via the CPAP at 2 L/m. Hopefully this will help his daytime sleepiness and his mentation. The following levels of functional competence are to be considered preliminary information. The reader is encouraged to refer to actual therapy notes and reports for specific details. He was seen and followed by speech therapy. Initially he was evaluated for dysphagia. He was somewhat impulsive. However he was felt to be safe for thin liquids and regular consistency foods. It was recommended that he follow compensatory feeding strategies including small bites and slow rate of feeding. However his cognition was a barrier to his understanding this. He was subsequently followed for cognition and linguistic capabilities. He did improve but it is recommended that he continue outpatient speech therapy in this regard. He was seen by physical therapy. At the conclusion of therapy he was able to ambulate independently over 500 feet. He continues to have some right-sided weakness but he was felt to be safe for ambulation and transfers. He does not require a walker nor cane at this time. He was also seen by occupational therapy. He improved with his functional abilities and was able to perform his ADLs independently to modified independent with the use of assistive devices at times. The patient is dismissed in improved condition on 12/28/2017. He currently is on Plavix which is a new medication for him. It is recommended that the Plavix be continued until he starts on Eliquis on or about 01/04/2018 at the direction of his physician, Dr. Payton Turner. In addition, he was started on nocturnal oxygen supplementation via his CPAP through [facility] in [place]. Hospital course: Plan - 12/25/17: Agree with admission to IRU under the care of Dr. Magallon. Encourage to encourage participation with therapies. Hospitalist service consulted for medical management. Labs on admission revealed mild anemia (hgb 12.2). Continue to monitor periodically throughout admission. Monitor blood sugars closely with BGMs. A1c on 12/22/17 was 6.5%. Continue home Glimepiride 2mg BID and metformin 1000mg BID. Sliding scale insulin as needed. Carb controlled diet. Monitor blood pressure closely with goal <160 systolic. Continue home verapamil 180mg daily, lisinopril 20mg daily. lasix 40mg daily and digoxin 250 mcg daily for a-fib. Plavix and ASA given recent CVA. Plan to initiate Eliquis on 01/04/18 given CHADsVASC score of at least 5. Monitor closely for signs of depression. Continue home Celexa. Monitor daily weight closely and for signs of fluid overload. Protonix for GERD and GI protection. Lovenox for DVT prophylaxis with plan to switch to Eliquis on 01/04/18. Upon discharge, patient's care will be returned to PCP, Dr. Turner. Patient requests to be FULL CODE. Time spent with patient: greater than 35 minutes Resuscitation Status: Full Code Discharge Plan - Med Rec/Dispo Referrals/Follow Up: Payton Turner MD [Primary Care Provider] - (Dr. Atul Turner on 01/07/18 at 9:15 am for Hosp. follow-up. [phone]. [address] [address]) [place] Instructions: A-fib (Atrial Fibrillation) (GEN), Left Hemispheric Stroke (GEN) Prescriptions: Continue Pantoprazole Sodium [Protonix] 1 tab PO ACB Metformin [Glucophage] 1 tab PO BIDWM Latanoprost [Xalatan] 1 drop EACH EYE HS Glimepiride [Amaryl] 2 mg PO BID Finasteride [Proscar] 5 mg PO DAILY Fexofenadine [Katty] 180 mg PO DAILY Citalopram [Celexa] 1 tab PO DAILY Acetaminophen [Acetaminophen Extra Strength] 500 mg PO Q6HPRN Lisinopril [Prinivil] 20 mg PO DAILY Clopidogrel Bisulfate [Clopidogrel] 1 tab PO DAILY Atorvastatin Calcium 80 mg PO DAILY Verapamil HCl [Verapamil ER] 180 mg PO DAILY Digoxin 250 mcg PO DAILY #0 Furosemide [Lasix] 40 mg PO DAILY #0 Brimonidine/Timolol Eye Drops [Combigan Eye Drops] 1 drop OP BID - Disposition 01 Discharged Home, Self-Care - Dismissal Complete Discharge Instructions are:: Complete
--- NOTE | 2017-12-28 13:52 | Letter to Referring Physician ---
Dear Dr. Turner, This is a brief note to bring you up-to-date on the status of Mo Monte and his stay on the acute inpatient rehabilitation unit at [facility]. As we discussed by phone, this patient was admitted to [facility] on 12/21/17 for acute left hemispheric CVA. He was noted to have atrial fibrillation and the stroke was felt to be embolic into the left middle cerebral artery distribution with resultant right-sided weakness and cognition deficits. The patient was stabilized while on the acute level and admitted to inpatient rehabilitation unit at [facility] on December 24, 2017. While on inpatient rehabilitation, this patient was seen by occupational therapy , physical therapy and speech therapy and improved overall in his functional ability. Other medical issues we monitored and managed included diabetes mellitus on oral agents, hypertension, atrial fibrillation (on Plavix only at this time) and nocturnal hypoxemia despite use of nasal CPAP. Please see a copy of the history and physical examination as well as discharge summary faxed separately for further details. Transfer records from [place] indicated they recommended he stay on Plavix until about 2 weeks after the event which would be on or about 01/04/2018. At that time they recommended transitioning to Eliquis for anticoagulation in view of his atrial fibrillation. Secondly, he had already been using his nasal CPAP at night but despite this was excessively sleepy. For this reason an overnight oximetry was performed on the evening of 12/27/2017 demonstrating desaturations down to 73%. He was less than 90% for over 50 minutes at night. We arranged for home oxygen therapy to begin at night at 2 L/m via the CPAP. Thank you for allowing us to be involved in this nice patient's care. Please contact me directly should you have any questions regarding their stay on the inpatient rehabilitation unit. Sincerely, Clifton Magallon M.D.
--- NOTE | 2017-12-28 14:20 | Letter to Referring Physician ---
Dear Dr. Turner, After we had made initial arrangements to start home oxygen at night via the CPAP for Mr. Monte, we were advised by the [facility] that he would have to have an outpatient oxygen titration study done in a sleep lab. He already has an appointment to see Tristan aHtfield MD in [place] and I will write a letter to him in this regard. Therefore he has not yet been started on home oxygen at night. Sincerely, Clifton Magallon M.D.
--- NOTE | 2017-12-28 14:23 | Letter to Referring Physician ---
Dear Dr. Hatfield, You had seen Mr. Monte in the past for a sleep study and had prescribed nasal CPAP which he continues to use. You have an appointment to see him in January of this year I believe. Unfortunately, the patient has suffered an acute embolic stroke likely secondary to atrial fibrillation. He was evaluated and treated at [facility] and has subsequently been on acute inpatient rehabilitation in [place]. He is being dismissed to his home today. While here on rehabilitation he continued to be quite sleepy during the daytime. For this reason we did do an overnight oximetry on room air and on his nasal CPAP. This revealed desaturations down to around 73%. He was less than 90 % at least 53 minutes of the night. It is our understanding that to start additional oxygen at night, he requires a new sleep study be done. I believe he has an appointment to see you in January but in any event I would ask you to review his situation and perhaps call the patient to arrange the repeat sleep study as you see fit. (I will also send you a copy of the history and physical and discharge summary from rehabilitation for your records.) Thank you very much for your consideration and please contact me should questions arise. His primary care physician is Payton Turner M.D. in [facility]. Sincerely, Clifton Magallon M.D.
== END 2017-12-28 15:20 | disposition home or self-care (01) | DRG 57 ==
PROVIDERS: ADMIT Internal Medicine; ATTEND Internal Medicine